=== PATIENT | female | born 1990 | race Caucasian/White ===

== ENCOUNTER 2017-08-30 12:14 | Emergency (ER) | payer OTHER, SELFPAY ==
[2017-08-30 12:16] VITALS: BP 140/76; PULSE 85; RESP 18; TEMP 36.6; O2SAT 100; BMI 34.7
--- NOTE | 2017-08-30 12:31 | ED.VISSUMM ---
- ER Visit Summary Date of Service: 08/30/17 Chief Complaint: Numbness History of Present Illness: The patient is a 27 F who goes to [facility]. She reports that approximately 830 this morning she had the onset of a headache. Is diffuse in location. She describes as an aching pain. Is 5 out of 10 severity. She has had similar headaches previously. Patient reports that approximately 1 hour later she had numbness that began in her right first through third fingers while she was doing her typical job duties. She is right-hand dominant. She reports that she has never had this before. A few minutes later she developed right facial numbness. That has now resolved. It lasted proximally 5 minutes. Following this however she has numbness that is extended over her entire right hand. Patient reports that her father has a history of MS and was diagnosed at approximately her age. Physical Examination: Vitals: Stable. Afebrile. Neurological: Cranial nerves II through XII are intact. 5 out of 5 strength throughout. Normal sensation to light touch throughout. Normal [id number]-dgko-isicur and nrow-jbvo-wlvb bilaterally. Normal gait. She has no paresthesias on exam, specifically in her right hand. General: A&O x 3. NAD. Cardiovascular exam: Regular rate and rhythm, no murmur, rub or gallop. Respiratory exam: Clear to auscultation bilaterally. No wheezes or stridor. Abdominal exam: Soft, nontender, nondistended, normal bowel sounds. No peritoneal signs. Extremity: No clubbing, cyanosis, or edema. 2+ radial pulse bilaterally. Test Results: CBC is normal. Chem-7 is normal. Patency test is negative. CT head is normal. Emergency Department Course and Treatment: Patient had an IV placed. She was given Toradol, Benadryl, and Reglan for her headache. She is resting comfortably. Treatment Plan: Patient will be discharged instructions to follow-up with her primary care physician for further evaluation and treatment. I did discuss the likelihood that she would need an MRI to rule out that this is an initial onset of multiple sclerosis. Return to the emergency department for any worsening symptoms. Disposition: To home in improved and stable condition. Impression: 1. Paresthesias right hand. 2. Family history of multiple sclerosis. This note was generated with [employer] software. It may contain incorrect words, spelling, and punctuation that were not noted in review of the chart prior to signing ED Disposition - Plan for ED Patient: Disposition: Home or Assisted Living Chief Complaint: Numb/Ting Instructions: ED Paraesthesias Referrals: Alexis Craig [NON-STAFF] - As soon as possible
--- NOTE | 2017-08-30 12:32 | CT_ITS ---
STUDY: CT BRAIN WITHOUT CONTRAST REASON FOR EXAM: Female, 27 years old. Facial numbness. Hand numbness. RADIATION DOSAGE (If Supplied By Facility): CTDIvol = ( 44.99 ) mGy, DLP = ( 745.49 ) mGycm TECHNIQUE: Transaxial CT imaging of the brain was performed without administration of intravenous contrast material. Individualized dose optimization techniques were used for this CT. COMPARISON: None. FINDINGS: Normal soft tissue structures. Normal calvarium. Normal size ventricles and extra-axial spaces for the patient's age. Normal white matter tracts of the cerebral hemispheres. Normal basal ganglia and thalami. Normal brainstem. Normal cerebellum. There is no intracranial hemorrhage. There are no findings of an acute ischemic infarction. Normal visualized paranasal sinuses. CT/Brain/Head without Contrast IMPRESSION: Normal unenhanced CT scan of the brain. Electronically Signed: Cirilo Owens MD at 13:39 EST , Service support ,
[2017-08-30] MEDS: DiphenhydrAMINE 50 MG/ML Syringe 25 MG IV (12:51)
[2017-08-30] MEDS: proCHLORPERazine 10 MG/2 ML Vial IV (12:51)
[2017-08-30] MEDS: Ketorolac 30 MG/ML Syringe IV (12:51)
[2017-08-30 13:10] LABS: Absolute Lymphocyte Count 1.86 X10^3/ul (0.83-4.51); Absolute Neutrophil Count 4.5 X10^3/uL (2.0-7.7); Basophil# 0.02 X10^3/uL; Basophil% 0.3 % (0-1); Eosinophil# 0.14 X10^3/uL; Hematocrit 41.7 % (37-47); Hemoglobin 13.5 g/dl (12.0-15.0); Lymphocyte # 1.86 X10^3/ul (4.0); Lymphocyte % 26.8 % (19-41); Mean Corp Hgb Conc 32.4 g/gl (32-36); Mean Corpuscular Hgb 29.4 pg (27.0-32.0); Mean Corpuscular Volume 90.8 fL (81-99); Mean Platelet Vol. 10.2 fl (6.2-12.0); Monocyte# 0.44 X10^3/uL; Monocyte% 6.3 % (0-10); Neutrophil # 4.48 X10^3/uL (2.7-7.7); Neutrophil % 64.6 % (47-70); POSITIVE COUNT NO; POSITIVE DIFFERENTIAL NO; POSITIVE MORPHOLOGY NO; Platelet Count 242 K/mm3 (150-450); RBC Distribution Width CV 13.3 % (11.6-14.6); RBC Distribution Width SD 43.8 fl (35.1-43.9); Red Blood Count 4.59 M/mm3 (4.2-5.4); White Blood Count 6.9 K/mm3 (4.4-11.0)
[2017-08-30 13:22] LABS: Anion Gap 4 (5-15); BUN 8 mg/dL (7-18); BUN/Creat Ratio 12.7 RATIO (10-20); Calcium,Total 8.6 mg/dL (8.5-10.1); Chloride 107 mmol/L (98-107); Creatinine, Serum 0.63 mg/dL (0.55-1.02); EST Glomerular Filtration Rate 119 mL/min (>60); Est Glom Filt Rate - Afr Amer 144 mL/min (>60); Estimated Creatinine Clearance 124.46 ml/min; Glucose 84 mg/dL (74-106); Potassium 3.7 mmol/L (3.5-5.1); Sodium Level 140 mmol/L (136-145)
[2017-08-30 13:40] LABS: Pregnancy, Serum, hCG Quali. NEGATIVE Negative (0-9 Nonpreg)
[2017-08-30 14:16] VITALS: BP 111/52; PULSE 71; RESP 16; O2SAT 100
[2017-08-30 14:18] VITALS: BP 111/52; PULSE 71; RESP 16; O2SAT 100
== END 2017-08-30 14:25 | disposition home or self-care (01) ==
PROVIDERS: Emergency Provider Emergency Medicine
DX: R20.2 Paresthesia of skin (principal); R51 Headache; Z82.69 Family history of other diseases of the musculoskeletal system and connective tissue; F17.200 Nicotine dependence, unspecified, uncomplicated
CPT/HCPCS: 70450; 80048; 84703; 85025; 96374; 96375; 99284; J7030; J7040; A4216

== ENCOUNTER 2018-01-25 12:15 | Emergency (ER) | payer MEDICAID, SELFPAY ==
[2018-01-25 12:16] VITALS: BP 136/68; PULSE 96; RESP 18; TEMP 36.7; O2SAT 98; BMI 36.1
[2018-01-25] MEDS: Metoclopramide 10 MG/2 ML Vial IV (13:02)
[2018-01-25] MEDS: DiphenhydrAMINE 50 MG/ML Syringe 25 MG IV (13:02)
[2018-01-25] MEDS: 0.9% Normal Saline 1,000 ML 999 ML IV (13:02)
--- NOTE | 2018-01-25 14:59 | ED.VISSUMM ---
- ER Visit Summary Date of Service: 01/25/18 Chief Complaint: Headache History of Present Illness: The patient is a 27 F who sees [facility] and Dr. Henrietta Montes. She reports that she has a headache that is posterior eyes that began approximately 1115 this morning is gradually gotten worse. Is 3 out of 10 severity. States worsened by nothing relieved by nothing. She has had nausea without vomiting. She reports that these headache was preceded by seeing bright colored spots in her eyes bilaterally. She denies any blurred or double vision. She has no photophobia. Patient is at 14 weeks 5 days . She denies any vaginal bleeding. No abdominal pain. Physical Examination: Vitals: Stable. Afebrile. General: Well-nourished and well-developed. Head: Normocephalic atraumatic. Neck: Supple, no lymphadenopathy. No JVD. Nontender. Cardiovascular: Regular rate and rhythm. No murmurs. Respiratory: No respiratory distress. Clear to auscultation bilaterally. Abdominal: Soft, nontender, nondistended, normal bowel sounds. No guarding, rebound, or peritoneal signs. Back: Nontender. Extremities: Nontender, no edema. Skin: Normal color, no rash. Neurologic: Alert and oriented ?3. Cranial nerves II through XII are intact. Normal strength and sensation. Psych: Normal affect. Emergency Department Course and Treatment: The patient has scotoma that are quite classic for a migraine headache. She was given a dose of Reglan and Benadryl IV. These resolved as did her headache. She had heart tones of 150 while here. Treatment Plan: Patient will be discharged instructions to follow-up with her primary care physician 1-2 days if not improving. Return to the emergency department for any worsening symptoms. Disposition: To home in improved and stable condition. Impression: 1. Migraine headache. 2. Second trimester . This note was generated with [employer] dictation software. It may contain incorrect words, spelling, and punctuation that were not noted in review of the chart prior to signing ED Disposition - Plan for ED Patient: Disposition: Home or Assisted Living Chief Complaint: Headache Instructions: ED Headache Migraine Prescriptions: Metoclopramide [Reglan] 10 mg PO 4X/DAY PRN #20 tablet PRN Reason: Headache Referrals: Doctor,Your [STAFF PHYSICIAN] - 1-2 Days if not improving
[2018-01-25 15:06] VITALS: BP 112/57; PULSE 81; RESP 16; O2SAT 97
== END 2018-01-25 15:07 | disposition home or self-care (01) ==
PROVIDERS: Emergency Provider Emergency Medicine
DX: O26.892 Other specified pregnancy related conditions, second trimester (principal); G43.909 Migraine, unspecified, not intractable, without status migrainosus; Z3A.14 14 weeks gestation of pregnancy
CPT/HCPCS: 96361; 96374; 96375; 99284; J7030; A4216

== ENCOUNTER 2018-07-07 21:42 | Outpatient (CLI) | payer OTHER, MEDICAID, SELFPAY ==
[2018-07-07 22:15] VITALS: BMI 36.4
[2018-07-07 22:48] LABS: ROM Internal Control Test YES-OK TO RESULT pt. (Internal QC); ROM Patient Test Negative (Negative)
--- NOTE | 2018-07-10 14:20 | OB.TRI.NOTE ---
History of Present Illness Was patient seen by the physician?: No Reason For Visit: R/O LABOR Date of Service: 07/07/18 Final OPHELIA Source: US <20 weeks Allergies amoxicillin [From Augmentin] Allergy (Verified 07/07/18 22:16) Rash cefaclor [From Ceclor] Allergy (Verified 07/07/18 22:16) Rash clavulanic acid [From Augmentin] Allergy (Verified 07/07/18 22:16) Rash clindamycin [From Cleocin] Allergy (Verified 07/07/18 22:16) Rash Penicillins Allergy (Verified 07/07/18 22:16) Rash sulfamethoxazole [From Septra] Allergy (Verified 07/07/18 22:16) Rash trimethoprim [From Septra] Allergy (Verified 07/07/18 22:16) Rash - Pertinent Past Medical History Medical History: Past Medical History (Last Updated 10/09/17 @ 12:03 by Marilee Bloom) Back pain Irregular periods Kidney stones Seasonal allergic rhinitis Laboratory Studies: Laboratory Tests 07/07/18 Range/Units 22:15 Vag Amniotic Fld Detect Negative (Negative) NST - FHR Rate Baby A Baseline: 130 Variability:: Moderate Accelerations:: 15 x 15 Decelerations:: None NST Reactive:: Yes FHR Category:: Category I Uterine Activity:: irreg ctxs Impression/Plan 27-year-old female multigravida at 37-3/7 weeks gestation with false labor. Patient is not in active labor. Discharge home and follow-up in the office as scheduled or return as needed.
== END 2018-07-08 00:20 | disposition home or self-care (01) ==
LOC: WPOUT 22:13 → WP 22:14
PROVIDERS: Referring Provider Obstetrics & Gynecology; Visit Provider Obstetrics & Gynecology
DX: O47.1 False labor at or after 37 completed weeks of gestation (principal); Z3A.37 37 weeks gestation of pregnancy
CPT/HCPCS: 59025; 59050; 84112; 99218; G0378

== ENCOUNTER 2018-07-15 07:00 | Inpatient (IN) | payer OTHER, MEDICAID, SELFPAY ==
[2018-07-15 07:25] VITALS: BMI 35.9
[2018-07-15] MEDS: Lactated Ringers 1,000 ML 50 ML IV ×2 (07:32→15:41)
[2018-07-15 07:45] LABS: Hematocrit 35.4 % (37-47); Hemoglobin 11.5 g/dl (12.0-15.0); Mean Corp Hgb Conc 32.5 g/gl (32-36); Mean Corpuscular Hgb 29.8 pg (27.0-32.0); Mean Corpuscular Volume 91.7 fL (81-99); Mean Platelet Vol. 10.5 fl (6.2-12.0); Platelet Count 242 K/mm3 (150-450); RBC Distribution Width CV 12.8 % (11.6-14.6); RBC Distribution Width SD 42.4 fl (35.1-43.9); Red Blood Count 3.86 M/mm3 (4.2-5.4); White Blood Count 8.5 K/mm3 (4.4-11.0)
[2018-07-15 07:46] LABS: Scan Indicated on CBC? Y/N NO
[2018-07-15] MEDS: Oxytocin 30 units/NS 500 ml 30 UNITS/500 ML IV.SOLN IV (08:00)
[2018-07-15] MEDS: Vancomycin IV 1,000 MG/200 ML BAG 200 MG IV (08:48)
[2018-07-15] MEDS: Nalbuphine 10 MG/ML Ampul IV (13:27)
--- NOTE | 2018-07-15 13:27 | PCM.HP.OB ---
History Date of Admission: 07/15/18 Final OPHELIA: 07/22/18 Final OPHELIA Source: US <20 weeks Gestational age: 39 Weeks and 0 Days History of this : This is a 27 year-old, 2 para 1 female at 39-0/7 weeks gestation cents for elective induction of labor. She has a history of one previous vaginal delivery and she had been induced at 38-3/7 weeks gestation with that for gestational hypertension. During this , she has been monitoring her blood pressure at home and she has remained normotensive. She denies any vaginal bleeding or leaking of fluid. She has had no regular contractions. She denies any headache or epigastric pain or visual rinses. Medical History: Medical History (Last Updated 10/09/17 @ 12:03 by Marilee Bloom) Back pain M54.9 Irregular periods N92.6 Kidney stones N20.0 Seasonal allergic rhinitis J30.2 Allergies amoxicillin [From Augmentin] Allergy (Verified 07/15/18 07:27) Rash cefaclor [From Ceclor] Allergy (Verified 07/15/18 07:27) Rash clavulanic acid [From Augmentin] Allergy (Verified 07/15/18 07:27) Rash clindamycin [From Cleocin] Allergy (Verified 07/15/18 07:27) Rash Penicillins Allergy (Verified 07/15/18 07:27) Rash sulfamethoxazole [From Septra] Allergy (Verified 07/15/18 07:27) Rash trimethoprim [From Septra] Allergy (Verified 07/15/18 07:27) Rash Home Medications: Home Medications Pnv No.95/Ferrous Fum/Folic AC [ Multivitamin Tablet] 1 each PO DAILY 01/25/18 Aspirin [Aspirin, Baby] 81 mg PO DAILY@0800 07/15/18 Smoking Status: Heavy Smoker (>10/day) Alcohol: None Number of Fetus(es): 1 Heart Tracing: Baseline, moderate variability, spontaneous accelerations and no recurrent decelerations TOCO Analysis: Irregular contractions History Past Pregnancies: Past Pregnancies Delivery Date Name GA/Weeks Outcome Route Weight Gender Labor Length Anesthesia Delivery Location Provider FOB Review of Systems Constitutional: Denies: Anorexia, Chills, Fever Eyes: Denies: Blurred vision Cardiovascular: Denies: Chest Pain Respiratory: Denies: Cough Gastrointestinal: Denies: Abdominal Pain Skin: Denies: Rash Physical Exam General: Alert, Cooperative, No apparent distress Cardiovascular: Regular rate Lungs: Normal air movement Abdomen: Soft, Non-Distended, Gravid, Appropriate for Gestational Age Extremities:: Other - trace edema WHOLESALE REPRESENTATIVE: Normal external genitalia Estimated gestational size: Appropriate for gestational size Presentation: Cephalic Cervix Dilation (cm): 3 - AROM w/ return of moderate clear fluid Station: -2 Effacement (%): 70 Assessment/Plan All Active Problems (Last Updated 10/09/17 @ 12:03 by Marilee Bloom) Physical exam, pre-employment (Acute) This is a 27 year-old, 2 para 1 at 39-0/7 weeks for elective induction of labor. EDC is 07/22/2018 by last menstrual period confirmed by first trimester ultrasound. May weight is less than 4000 g clinically, pelvis clinically adequate to expect vaginal delivery. Will initiate Pitocin and artificial rupture membranes induction. Patient is on vancomycin for group B strep prophylaxis..
[2018-07-15] MEDS: Acetaminophen 325 MG Tablet PO (15:38)
[2018-07-15] MEDS: Oxytocin 30 units/NS 500 ml 30 UNITS/500 ML IV.SOLN 334 UNITS IV (19:01)
[2018-07-15] MEDS: Oxytocin 30 units/NS 500 ml 30 UNITS/500 ML IV.SOLN 167 UNITS IV (19:16)
[2018-07-15] MEDS: Methylergonovine 0.2 MG/ML Ampul IM (19:30)
--- NOTE | 2018-07-15 19:41 | PCM.OB.VAG ---
Vaginal Delivery Maternal Presentation: Elective Induction Amniotic Membrane Rupture Type: Artificial Amniotic Fluid Description: Clear Final OPHELIA: 07/22/18 Gestational age: 39 Weeks and 0 Days Date of Procedure: 07/15/18 Pre-Operative Diagnosis: Elective induction Post-Operative Diagnosis: Same Surgery/ Procedure Performed: Spontaneous Vaginal Delivery Type of Anesthesia: Epidural Description of Procedure: Patient prepped & draped when c/c/+2. Patient pushed to deliver head. Shoulders & body easily followed. placed on maternal abdomen where 3VC clamped & cut in delayed fashion. Placenta delivered with gentle traction. Good uterine tone obtained. 1x2cm sebaceous cyst excised with scalpel. Figure of eight suture with 3-0 vicryl placed for hemostasis. Presentation: CESAR Placental Delivery Description: Expressed Placenta Disposition: [facility] Cord Vessel Description: 3 Vessels Estimated Blood Loss: 400ml Infant A gender: Female (1 minute): 8 (5 minute): 9 Episiotomy Description: None Laceration: Vaginal Extension/lac - repaired with 3-0 vicryl Medications given after delivery: IV Pitocin Complications: None
[2018-07-15] MEDS: 0.9% Saline Lock 10 ML Syringe IV (20:52)
[2018-07-15] MEDS: Acetaminophen 500 MG Tablet 1000 MG PO (23:48)
[2018-07-16] VITALS: BP 113/73; PULSE 80; RESP 16; TEMP 36.9
[2018-07-16 04:38] VITALS: BP 111/67; PULSE 69; RESP 16; TEMP 36.3
[2018-07-16] MEDS: Ibuprofen 600 MG Tablet PO ×3 (06:48→22:09)
[2018-07-16 08:00] VITALS: BP 135/63; PULSE 87; RESP 17; TEMP 36.8; O2SAT 99
--- NOTE | 2018-07-16 08:30 | PCM.PN.OB ---
Subjective: pain well controlled, average lochia, no N/V - Physical Exam General: Alert, Cooperative, No apparent distress Vital Signs Temp Pulse Resp BP 97.3 F L 69 16 111/67 07/16/18 04:38 07/16/18 04:38 07/16/18 04:38 07/16/18 04:38 Weight: 101.06 kg Body Mass Index (BMI) 35.9 Intake and Output for Last 24 Hours 07/14/18 07/15/18 07/16/18 23:59 23:59 23:59 Intake Total 3681 / 3681 Output Total 700 / 700 800 / 800 Balance 2981 / 2981 -800 / -800 Laboratory Tests Past 24 Hrs 07/15/18 07:32 Blood Type A POSITIVE Antibody Screen NEGATIVE Medical Necessity - Tobacco Use Smoking Status: Heavy Smoker (>10/day) Assessment/Plan All Active Problems (Last Updated 10/09/17 @ 12:03 by Marilee Bloom) Physical exam, pre-employment (Acute) PPD#1 routine care might like to be d/jennyfer today.
--- NOTE | 2018-07-16 08:32 | DCINST_ITS ---
Discharge Diet: No Restrictions Discharge Activity: Return to Normal Activity, May not drive while taking narcotic pain medications., May Shower May resume sexual activity in: 4-6 weeks Additional Activity Instructions:: Nothing in the vagina for 4-6 weeks. You may return to work/school in 6 weeks. Call your doctor if your incision/area has: Continuous Slow Oozing, Sudden Increased Bleeding, Increased Pain/ Swelling, Increased Redness, Foul Smelling Discharge Additional Instructions: If you experience any of the following, contact your healthcare provider. * Bleeding that soaks a pad every hour for 2 hours * Fever 100.4 or higher * Unrelieved incision or abdominal pain * Swelling, redness, discharge or bleeding from your incision or episiotomy site * Your incision begins to separate * Problems urinating (including inability to urinate or burning while urinating). * Visual changes * Severe headache * Flu-like symptoms * Pain or redness in one of both of your breasts * Pain, warmth, tenderness or swelling in your legs, especially the calf area * Frequent nausea and vomiting * Symptoms of depression or anxiety If you experience any of the following, call 911 or go to the nearest Emergency Room. * Chest pain * Problems breathing * Seizure activity * Partial or complete paralysis of a body part, slurred speech, weakness or drooping of the face, or a sudden inability to walk or hold your balance Allergies/Adverse Reactions: Allergies amoxicillin [From Augmentin] Allergy (Verified 07/15/18 07:27) Rash cefaclor [From Ceclor] Allergy (Verified 07/15/18 07:27) Rash clavulanic acid [From Augmentin] Allergy (Verified 07/15/18 07:27) Rash clindamycin [From Cleocin] Allergy (Verified 07/15/18 07:27) Rash Penicillins Allergy (Verified 07/15/18 07:27) Rash sulfamethoxazole [From Septra] Allergy (Verified 07/15/18 07:27) Rash trimethoprim [From Septra] Allergy (Verified 07/15/18 07:27) Rash Medications to take at Discharge Pnv No.95/Ferrous Fum/Folic AC [ Multivitamin Tablet] 1 each PO DAILY 01/25/18 Ibuprofen [Motrin] 800 mg PO TID PRN PRN #60 tablet 07/16/18 The following prescriptions were given: Ibuprofen [Motrin] 800 mg PO TID PRN PRN #60 tablet PRN Reason: Pain Please Follow Up With: Henrietta Montes MD - [phone] When: Call to make an appointment with your doctor in 6 weeks. If you had elevated Blood Pressure or 4th degree laceration you will need to be seen in 2 weeks. Primary Care Physician: Care Physician,No Primary [Primary Care Provider] - Test Results: Test results from this visit will be discussed in further detail at your follow- up appointment, if applicable.
[2018-07-16] MEDS: Acetaminophen 500 MG Tablet 1000 MG PO ×2 (11:04→20:20)
[2018-07-16 13:00] VITALS: BP 128/73; PULSE 89; RESP 17; TEMP 36.6; O2SAT 98
[2018-07-16 16:00] VITALS: BP 121/65; PULSE 89; RESP 17; TEMP 36.9; O2SAT 99
[2018-07-16 20:21] VITALS: BP 123/73; PULSE 78; RESP 18; TEMP 36.6
[2018-07-17 00:29] VITALS: BP 130/74; PULSE 89; RESP 16; TEMP 36.4
[2018-07-17 02:00] VITALS: BP 123/70; PULSE 86; RESP 18; TEMP 36.2
[2018-07-17] MEDS: Ibuprofen 600 MG Tablet PO (05:37)
[2018-07-17 08:04] VITALS: BP 129/60; PULSE 90; RESP 16; TEMP 36.8; O2SAT 98
--- NOTE | 2018-07-17 08:05 | PCM.PN.OB ---
Subjective: Patient resting in bed, reports no issues at this time. Reports that baby is feeding well, no latch or issues reported. Patient denies PATIÑO, scotoma, or dizziness. Desires discharge to home today. Objective: VSS, Afebrile Nipples intact, no cracks or blisters noted Abdomen NT x 4 quadrants, FF midline 2FB below umbilicus +2/4 reflexes in LE, no edema noted, negative calf tenderness scant rubra lochia, perineum well-approximated - Physical Exam General: Alert, Oriented x3, Cooperative HEENT: Atraumatic, Normocephalic Neck: Supple Lungs: Normal air movement Cardiovascular: Regular rate, No murmurs Abdomen: Soft, Non Tender, Non-Distended, Passing Flatus Extremities: No edema, Capillary Refill Less than 3 Seconds Skin: No rashes, No breakdown Musculoskeletal: No Tenderness to Palpation of Joints or Extremities Neurological: Cranial nerves II-XII grossly intact Psych/Mental Status: Normal Affect, Appropriate Vital Signs Temp Pulse Resp BP Pulse Ox 97.2 F L 86 18 123/70 H 99 07/17/18 02:00 07/17/18 02:00 07/17/18 02:00 07/17/18 02:00 07/16/18 16:00 Oxygen Delivery Method Room Air Weight: 222 lb 12.8 oz Body Mass Index (BMI) 35.9 Intake and Output for Last 24 Hours 07/15/18 07/16/18 07/17/18 23:59 23:59 23:59 Intake Total 3681 / 3681 Output Total 700 / 700 800 / 800 Balance 2981 / 2981 -800 / -800 Medical Necessity - Tobacco Use Smoking Status: Heavy Smoker (>10/day) Assessment/Plan All Active Problems (Last Updated 10/09/17 @ 12:03 by Marilee Bloom) Physical exam, pre-employment (Acute) 27 y/o s/p , PPD #2, Normal PP Course P: 1) Anticipate discharge to home today 2) Anticipatory PP discharge teaching done 3) RTC at 2 weeks and 6 weeks for follow-up visits in [facility] Patti BECKETT
[2018-07-17 09:10] VITALS: BP 129/60; PULSE 90; RESP 16; TEMP 36.8; O2SAT 98
[2018-07-17] MEDS: Acetaminophen 500 MG Tablet 1000 MG PO (09:17)
--- OUTSIDE RECORDS SUMMARY | 2018-09-18 19:42 | XMS RPT_ITS ---
:1990 Author Organization OH[facility] Care Team Providers Name Role Phone MAGDIEL REYESECHAILEE Bustillos Attending Unavailable ERIC, NASH L Referring Unavailable ERIC, NASH L Attending Unavailable ERIC, NASH L Referring Unavailable JOSE MIGUEL WILLIS Attending Unavailable ERIC, NASH L Referring Unavailable ERIC, NASH L Referring Unavailable ERIC, NASH L Attending Unavailable ERIC, NASH L Referring Unavailable JOSE MIGUEL WILLIS Attending Unavailable ERIC, NASH L Referring Unavailable ERIC, NASH L Attending Unavailable ERIC, NASH L Attending Unavailable ERIC, NASH L Referring Unavailable ERIC, NASH L Attending Unavailable ERIC, NASH L Referring Unavailable ERIC, NASH L Referring Unavailable MIGUEL CAR Attending Unavailable ALBA, JOSE MIGUEL Mac Attending Unavailable ERIC, NASH L Attending Unavailable ERIC, NASH L Attending Unavailable MIGUEL CAR Attending Unavailable WANDA ZAMORA (CNM) Attending Unavailable ERIC, NASH L Attending Unavailable ERIC, NASH L Attending Unavailable Brendan Farias Attending Unavailable Rubi Fariasantinos Admitting Unavailable Tourlas, Brendan Primary Care Unavailable Wiswell, Jovanna Attending Unavailable Wiswell, Jovanna Referring Unavailable Primay Care Physicia, No Primary Care Unavailable Primay Care Physicia, No Primary Care Unavailable Della Shah Admitting Unavailable Della Shah Attending Unavailable Della Shah Referring Unavailable Dewayne English Attending Unavailable Primay Care Physicia, No Primary Care Unavailable Chaim Pierre Attending Unavailable Primay Care Physicia, No Referring Unavailable Primay Care Physicia, No Primary Care Unavailable Primay Care Physicia, No Primary Care Unavailable Dewayne English Attending Unavailable PROBLEMS PROBLEMS DATE TYPE CONDITION / CODE ATTENDING STATUS SOURCE 05/04/2018 Active 28 weeks gestation NA Active [facility] Z3A.28(ICD-10) Repository 05/04/2018 Active Encounter for NA Active [facility] supervision of [facility] other normal Repository , third trimester / Z34.83(ICD-10) 12/11/2017 Active Personal history of NA Active [facility] other complications [facility] [place] of , Repository childbirth and the puerperium / Z87.59(ICD-10) 01/08/2018 Active 12 weeks gestation NA Active [facility] of / [facility] [place] Z3A.12(ICD-10) Repository 01/08/2018 Active Encounter for NA Active [facility] screening [facility] [place] for nuchal Repository translucency / Z36.82(ICD-10) 01/08/2018 Active Encounter for NA Active [facility] [place] screening, Repository unspecified / Z36.9(ICD-10) 12/11/2017 Active Encounter for NA Active [facility] supervision of [facility] other normal Repository , first trimester / Z34.81(ICD-10) 11/26/2017 Active Unknown / NA Active [facility] UNK(Unknown) [facility] [place] Repository 10/09/2017 Unknown Z02.1 - Encounter Chaim Pierre Active [place] for pre-employment Community examination / Hospital Z02.1(ICD-10) Repository PROCEDURES PROCEDURES No Procedure Records FoundRESULTS RESULTS PROGRESS Observed: 07/22/2018 Status: COMPLETED Source: [place] 9:46 AM [facility] REPOSITORY HNO ID: [id number] Author: Magy Osborne LPN Service: (none) Author Type: (none) Type: Progress Notes Filed: 07/22/2018 9:58 AM Note Text: Pt delivered via at [facility] on 07/15/[address] Shah. See OB Outcome Note. Spoke with pt post and she denies any c/o or issues. 6 wk pp appt scheduled. Magy Osborne LPN DISCHARGE INSTRUCTION Observed: 07/16/2018 Status: F Source: [place] 8:32 AM [facility] REPOSITORY [facility] Medical Records Department [address] [place] [address] Instructions for Home/Discharge Instructions 07/16/18 0832 MR#: [id number] Acct: [id number] Name: MELIDA PARRISH Rep #: [id number] : 1990 27 From: Nash Reyes MD PCP: Care Physician, No Primary Status: ADM IN Discharge Diet: No Restrictions Discharge Activity: Return to Normal Activity, May not drive while taking narcotic pain medications., May Shower May resume sexual activity in: 4-6 weeks Additional Activity Instructions:: Nothing in the vagina for 4-6 weeks. You may return to work/school in 6 weeks. Call your doctor if your incision/area has: Continuous Slow Oozing, Sudden Increased Bleeding, Increased Pain/ Swelling, Increased Redness, Foul Smelling Discharge Additional Instructions: If you experience any of the following, contact your healthcare provider. * Bleeding that soaks a pad every hour for 2 hours * Fever 100.4 or higher * Unrelieved incision or abdominal pain * Swelling, redness, discharge or bleeding from your incision or episiotomy site * Your incision begins to separate * Problems urinating (including inability to urinate or burning while urinating). * Visual changes * Severe headache * Flu-like symptoms * Pain or redness in one of both of your breasts * Pain, warmth, tenderness or swelling in your legs, especially the calf area * Frequent nausea and vomiting * Symptoms of depression or anxiety If you experience any of the following, call 911 or go to the nearest Emergency Room. * Chest pain * Problems breathing * Seizure activity * Partial or complete paralysis of a body part, slurred speech, weakness or drooping of the face, or a sudden inability to walk or hold your balance Allergies/Adverse Reactions: Allergies amoxicillin [From Augmentin] Allergy (Verified 07/15/18 07:27) Rash cefaclor [From Ceclor] Allergy (Verified 07/15/18 07:27) Rash clavulanic acid [From Augmentin] Allergy (Verified 07/15/18 07:27) Rash clindamycin [From Cleocin] Allergy (Verified 07/15/18 07:27) Rash Penicillins Allergy (Verified 07/15/18 07:27) Rash sulfamethoxazole [From Septra] Allergy (Verified 07/15/18 07:27) Rash trimethoprim [From Septra] Allergy (Verified 07/15/18 07:27) Rash Medications to take at Discharge Pnv No.95/Ferrous Fum/Folic AC [ Multivitamin Tablet] 1 each PO DAILY 01/25/18 Ibuprofen [Motrin] 800 mg PO TID PRN PRN #60 tablet 07/16/18 The following prescriptions were given: Ibuprofen [Motrin] 800 mg PO TID PRN PRN #60 tablet PRN Reason: Pain Please Follow Up With: Nash Reyes MD - [phone] When: Call to make an appointment with your doctor in 6 weeks. If you had elevated Blood Pressure or 4th degree laceration you will need to be seen in 2 weeks. Primary Care Physician: Care Physician,No Primary [Primary Care Provider] - Test Results: Test results from this visit will be discussed in further detail at your follow-up appointment, if applicable. 07/16/18 0832 <Electronically signed by Nash Reyes MD> Date Nash Reyes MD CC: No Primary Care Physician Signed OPERATIVE REPORT Observed: 07/15/2018 Status: F Source: [place] 7:48 PM [facility] REPOSITORY [facility] Medical Records Department [address] [place] [address] Operative Report 07/15/181940 MR#: [id number] Acct: [id number] Name: MELIDA PARRISH Rep #: [id number] : 1990 27 From: Della Shah PCP: Care Physician, No Primary Status: ADM IN Location: [place] [address] Vaginal Delivery Maternal Presentation: Elective Induction Amniotic Membrane Rupture Type: Artificial Amniotic Fluid Description: Clear Final OPHELIA: 07/22/18 Gestational age: 39 Weeks and 0 Days Date of Procedure: 07/15/18 Pre-Operative Diagnosis: Elective induction Post-Operative Diagnosis: Same Surgery/ Procedure Performed: Spontaneous Vaginal Delivery Type of Anesthesia: Epidural Description of Procedure: Patient prepped AND draped when c/c/+2. Patient pushed to deliver head. Shoulders AND body easily followed. Infant placed on maternal abdomen where 3VC clamped AND cut in delayed fashion. Placenta delivered with gentle traction. Good uterine tone obtained. 1x2cm sebaceous cyst excised with scalpel. Figure of eight suture with 3-0 vicryl placed for hemostasis. Presentation: CESAR Placental Delivery Description: Expressed Placenta Disposition: [facility] Cord Vessel Description: 3 Vessels Estimated Blood Loss: 400ml Infant A gender: Female (1 minute): 8 (5 minute): 9 Episiotomy Description: None Laceration: Vaginal Extension/lac - repaired with 3-0 vicryl Medications given after delivery: IV Pitocin Complications: None 07/15/181947 <Electronically signed by Della Shah > Date Della Shah CC: No Primary Care Physician; Della Pablo Signed HISTORY AND PHYSICAL Observed: 07/15/2018 Status: F Source: KO EXAM 1:34 PM [facility] REPOSITORY [facility] Medical Records Department [address] [place] [address] History and Physical 07/15/18 1327 MR#: [id number] Acct: [id number] Name: MELIDA PARRISH Rep #: [id number] : 1990 27 From: Nash Reyes MD PCP: Care Physician, No Primary Status: ADM IN Location: [id number] History Date of Admission: 07/15/18 Final OPHELIA: 07/22/18 Final OPHELIA Source: US <20 weeks Gestational age: 39 Weeks and 0 Days History of this : This is a 27 year-old, 2 para 1 female at 39-0/7 weeks gestation cents for elective induction of labor. She has a history of one previous vaginal delivery and she had been induced at 38-3/7 weeks gestation with that for gestational hypertension. During this , she has been monitoring her blood pressure at home and she has remained normotensive. She denies any vaginal bleeding or leaking of fluid. She has had no regular contractions. She denies any headache or epigastric pain or visual rinses. Medical History: Medical History (Last Updated 10/09/17 @ 12:03 by Marilee Bloom) Back pain M54.9 Irregular periods N92.6 Kidney stones N20.0 Seasonal allergic rhinitis J30.2 Allergies amoxicillin [From Augmentin] Allergy (Verified 07/15/18 07:27) Rash cefaclor [From Ceclor] Allergy (Verified 07/15/18 07:27) Rash clavulanic acid [From Augmentin] Allergy (Verified 07/15/18 07:27) Rash clindamycin [From Cleocin] Allergy (Verified 07/15/18 07:27) Rash Penicillins Allergy (Verified 07/15/18 07:27) Rash sulfamethoxazole [From Septra] Allergy (Verified 07/15/18 07:27) Rash trimethoprim [From Septra] Allergy (Verified 07/15/18 07:27) Rash Home Medications: Home Medications Pnv No.95/Ferrous Fum/Folic AC [ Multivitamin Tablet] 1 each PO DAILY 01/25/18 Aspirin [Aspirin, Baby] 81 mg PO DAILY@0800 07/15/18 Smoking Status: Heavy Smoker (>10/day) Alcohol: None Number of Fetus(es): 1 Heart Tracing: Baseline, moderate variability, spontaneous accelerations and no recurrent decelerations TOCO Analysis: Irregular contractions History Past Pregnancies: Past Pregnancies Delivery Name GA/Weeks Outcome Route WeiInfant GeLabor LenAnesthesiDelivery Provider FOB Date ght nder h a Location Review of Systems Constitutional: Denies: Anorexia, Chills, Fever Eyes: Denies: Blurred vision Cardiovascular: Denies: Chest Pain Respiratory: Denies: Cough Gastrointestinal: Denies: Abdominal Pain Skin: Denies: Rash Physical Exam General: Alert, Cooperative, No apparent distress Cardiovascular: Regular rate Lungs: Normal air movement Abdomen: Soft, Non-Distended, Gravid, Appropriate for Gestational Age Extremities:: Other - trace edema [employer]GER: Normal external genitalia Estimated gestational size: Appropriate for gestational size Presentation: Cephalic Cervix Dilation (cm): 3 - AROM w/ return of moderate clear fluid Station: -2 Effacement (%): 70 Assessment/Plan All Active Problems (Last Updated 10/09/17 @ 12:03 by Marilee Bloom) Physical exam, pre-employment (Acute) This is a 27 year-old, 2 para 1 at 39-0/7 weeks for elective induction of labor. EDC is 07/22/2018 by last menstrual period confirmed by first trimester ultrasound. May weight is less than 4000 g clinically, pelvis clinically adequate to expect vaginal delivery. Will initiate Pitocin and artificial rupture membranes induction. Patient is on vancomycin for group B strep prophylaxis.. 07/15/18 8334 <Electronically signed by Nash Reyes MD> Date Nash Reyes MD Cosigner Signature: Date (if applicable) CC: No Primary Care Physician; Nash Reyes MD Signed CBC-COMPLETE BLOOD CNT Collected: 07/15/2018 Status: F Source: KO NO DIFF 7:32 AM [facility] REPOSITORY TYPE CODE TESTS RESULT OUT OF RANGE REFERENCE UNITS LAB L100.1000 4.4-11.0 K/mm3 Normal WBC 8.5 LAB L100.1200 4.2-5.4 M/mm3 Low RBC 3.86 LAB L100.1300 12.0-15.0 g/dl Low HGB 11.5 LAB L100.1400 37-47 % Low HCT 35.4 LAB L100.1500 81-99 fL Normal MCV 91.7 LAB L100.1600 27.0-32.0 pg Normal MCH 29.8 LAB L100.1700 32-36 g/gl Normal MCHC 32.5 LAB L100.1810 11.6-14.6 % Normal RDW CV 12.8 LAB L100.1820 35.1-43.9 fl Normal RDW SD 42.4 LAB L100.1900 150-450 K/mm3 Normal PLT 242 LAB L100.2000 6.2-12.0 fl Normal MPV 10.5 Performed By: #### L100.0500 #### [facility] [address] [place], [place], [address] TYPE AND SCREEN Collected: 07/15/2018 Status: F Source: KO 7:32 AM [facility] REPOSITORY Order Comment: Reason for Type AND Screen/Red Cells: ROUTINE TYPE CODE TESTS RESULT OUT OF RANGE REFERENCE UNITS LAB B10.0800 A Normal BLOOD TYPE GEL POSITIVE LAB B100.4000 Normal Antibody NEGATIVE Screen Performed By: #### B101.7450 #### [facility] [address] [place], [place], [address] (ROM) RUPTURE OF Collected: 07/07/2018 Status: F Source: [place] 10:15 PM [facility] REPOSITORY TYPE CODE TESTS RESULT OUT OF RANGE REFERENCE UNITS LAB L205.1310 Negative Normal ROM Negative Result Comment: Amniotic fluid not present indicates No Rupture of Membranes at time of specimen collection. Performed By: #### L205.1000 #### [facility] [address] [place], [place], [address] PROGRESS Observed: 07/06/2018 Status: COMPLETED Source: [place] 2:59 PM [facility] REPOSITORY HNO ID: [id number] Author: Wanda Zamora Service: (none) Author Type: Lumber Tailer Type: Progress Notes Filed: 07/06/2018 3:01 PM Note Text: NST SUMMARY PROVIDER ASSESSMENT AND INTERPRETATION Melida Parrish is a 27 year old female, , who is at 37w5d with an OPHELIA of 07/22/2018, by Last Menstrual Period dating method. Indications for NST: Decreased Movement Baseline: 150 Variability: Moderate Accelerations: Present 15 X 15 Decelerations: None Contractions: TOCO: None Interpretation: Reactive SIGNATURE: Wanda Zamora APRN.CNM GROUP B STREP PCR Collected: 06/23/2018 Status: F Source: [place] 11:00 AM [facility] REPOSITORY TYPE CODE TESTS RESULT OUT OF RANGE REFERENCE UNITS LAB GBPCRT Positive for Abnormal Group B Alert GROUP B Streptococcus by STREP PCR PCR. If susceptibility testing is needed and was not requested with initial test order, call lab ([phone]) within 5 days to initiate workup. Performed By: #### GBPCR #### [facility] [email or web address] [address] [id number] Observed: 06/23/2018 Status: F Source: [place] RFLX GBS CULT 11:00 AM [facility] SUSCEP REPOSITORY (LAB USE ONLY) Culture Result - Streptococcus agalactiae (Group B streptococcus) ORGANISM: Streptococcus agalactiae (Group B streptococcus) METHOD: Minimum inhibitory concentration (VIZION) Antibiotic Interp MARIOLA Status Penicillin G SUSCEPTIBLE 0.06 F Vancomycin SUSCEPTIBLE <=0.5 F Clindamycin RESISTANT >1 F Performed By: #### GBSREF #### [facility] [email or web address] [address] [place], [place] [address] PROGRESS Observed: 06/07/2018 Status: COMPLETED Source: [place] 3:17 PM [facility] REPOSITORY HNO ID: [id number] Author: Jose Miguel Willis Service: (none) Author Type: Physician Type: Progress Notes Filed: 06/07/2018 3:18 PM Note Text: A bullock intrauterine The size is AGA Estimated Date of Delivery: 07/22/18 EGA = 33w4d The anatomy appears normal in the areas visualized. The amniotic fluid volume is normal. There is no evidence of effusions and/ or hydrops. The placenta is fundal. RECOMMENDATIONS: - Self-assessment of kick counts - Follow up ultrasound as clinically indicated CBC AND DIFFERENTIAL Collected: 05/04/2018 Status: F Source: [place] 3:42 PM [facility] [place] REPOSITORY TYPE CODE TESTS RESULT OUT OF REFERENCE UNITS RANGE LAB WBC 3.70-11.00 k/uL WBC 9.79 LAB RBC 3.90-5.20 m/uL Low RBC 3.48 LAB HGB 11.5-15.5 g/dL Low Hemoglobin 11.0 LAB HCT 36.0-46.0 % Low Hematocrit 33.6 LAB MCV 80.0-100.0 fL MCV 96.6 LAB MCH 26.0-34.0 pG MCH 31.6 LAB MCHC 30.5-36.0 g/dL MCHC 32.7 LAB RDWCV 11.5-15.0 % RDW-CV 13.1 LAB PLTCT 150-400 k/uL Platelet Count 240 LAB MPV 9.0-12.7 fL MPV 11.5 LAB ANEUT % Neut% 74.6 LAB AANEUT 1.45-7.50 k/uL Abs Neut 7.30 LAB ALYMP % Lymph% 16.2 LAB AALYMP 1.00-4.00 k/uL Abs Lymph 1.59 LAB AMONO % [place]% 7.6 LAB AAMONO <0.87 k/uL Abs [place] 0.74 LAB AEOS % Eosin% 1.4 LAB AAEOS <0.46 k/uL Abs Eosin 0.14 LAB ABASO % Baso% 0.2 LAB AABASO <0.11 k/uL Abs Baso <0.03 LAB AUNRBC 0 /100 WBC NRBCs 0.0 LAB ABNRBC <0.01 k/uL Absolute nRBC <0.01 LAB DTYP DTYPE Auto Diff Performed By: #### CBCDIF #### [facility] [address], [place] [address] 50G, 1HR GEST. Collected: 05/04/2018 Status: F Source: [place] GSCRN 3:42 PM [facility] REPOSITORY TYPE CODE TESTS RESULT OUT OF REFERENCE UNITS RANGE LAB GLUP 74-134 mg/dL Glucose 95 Screen, Preg Result Comment: [place] Congress of Obstetricians and Gynecologists (Blount/Gostan) guidelines state a gestational diabetes mellitus positive screen is made, in women not previously diagnosed with overt diabetes, when the 1 hr plasma glucose level is equal to or above 140 mg/dL. The [facility] Housing Counselor and [facility] [place] recommends a 135 mg/dL cutoff. Performed By: #### GLTGST #### [facility] [address] [place], [place] [address] PROGRESS Observed: 04/05/2018 Status: COMPLETED Source: [place] 3:12 PM [facility] REPOSITORY HNO ID: [id number] Author: Kandace Mendez Ma Service: (none) Author Type: (none) Type: Progress Notes Filed: 04/05/2018 3:31 PM Note Text: Influenza Vaccine Documentation: ? Patient is identified by name and date of : Yes ? Patient is older than 6 months of age: Yes ? Patient denies a severe allergy to any vaccine component or to a previous dose of influenza vaccine: Yes FOR EGG ALLERGY CONCERNS, REFER TO PROVIDER. ? Denies allergy to gelatin, formaldehyde, thimerosol :Yes ? Patient is afebrile and not moderately or severely ill: Yes ? Does the patient have a history of Gullian ?Marietta Syndrome (a severe paralytic illness): No ? Denies bone marrow transplant prior 6 months or solid organ transplant prior 3 months: Yes ? VIS sheet provided: Yes ? See Immunization Form in EpicCare for details of immunizations administered today. Kandace Mendez Ma PROGRESS Observed: 03/03/2018 Status: COMPLETED Source: [place] 1:20 PM [facility] REPOSITORY HNO ID: [id number] Author: Nash Reyes Service: (none) Author Type: Physician Type: Progress Notes Filed: 03/03/2018 1:20 PM Note Text: Anatomy ultrasound reviewed. No abnormalities identified. Follow up as clinically indicated. Please place copy in ob chart. Nash Reyes MD PROGRESS Observed: 03/03/2018 Status: COMPLETED Source: [place] 1:09 PM [facility] REPOSITORY HNO ID: [id number] Author: Jose Miguel Willis Service: (none) Author Type: Physician Type: Progress Notes Filed: 03/03/2018 1:10 PM Note Text: A bullock? fetus in utero with symmetric measurements Adequate growth (AGA). Estimated Date of Delivery: 07/22/18 EGA = 19w5d The anatomy appears normal. There are no evident malformations and /or effusions. No genetic markers are noted. The amniotic fluid volume is within normal limits. The sensitivity of ultrasound in the detection of malformations overall is approximately 35%. RECOMMENDATIONS: - Follow up ultrasound as clinically indicated SEQUENT SCRN SECOND Collected: 02/05/2018 Status: F Source: [place] [facility] PATIENTS ONLY 2:22 PM [facility] REPOSITORY TYPE CODE TESTS RESULT OUT OF REFERENCE UNITS RANGE LAB SE1PAP MoM 0.88 SE1 BETY A LAB SE2AFP MoM 0.74 SE2 AFP LAB SE2HCG MoM 0.78 SE2 hCG LAB SE2UE3 MoM 0.81 SE2 Unconj uE3 LAB SE2INH MoM 1.57 SE2 Dimrc Inhibin A LAB SE1HCG MoM 0.78 SE1 hCG LAB SE2INT Screen Negative SE2 Interp Screen Negative LAB SE2SDN SE2 Scrn Rsk 1:5900 Dn Synd LAB SE2ADN 1:850 SE2 Age Rsk Dn Snyd LAB SE2STS SE2 Scr Rsk <1:12892 Trsmy 13 LAB SE2STR SE2 Scr Rsk <1:21413 Trsmy18 LAB SE2SON SE2 Scr Rsk 1:7000 ONTD LAB SE2RS View Seq Scrn results in Second Trim Scanned Documents link when available. LAB SEQLRV SEQ Staff Reviewed by Review Mateusz Murdock MD, PhD ([id number]) Performed By: #### SEQL2 #### [facility] [email or web address] [address] [place], [place] [address] EMERGENCY DEPARTMENT Observed: 01/25/2018 Status: F Source: [place] SUMMARY 5:24 PM [facility] REPOSITORY [facility] Medical Records Department [address] [place] [address] Emergency Department Summary 01/25/18 1459 MR#: [id number] Acct: [id number] Name: MELIDA PARRISH Rep #: [id number] : 1990 27 From: Dewayne English MD PCP: Care Physician, No Primary Status: DEP ER - ER Visit Summary Date of Service: 01/25/18 Chief Complaint: Headache History of Present Illness: The patient is a 27 F who sees [facility] and Dr. Nash Reyes. She reports that she has a headache that is posterior eyes that began approximately 1115 this morning is gradually gotten worse. Is 3 out of 10 severity. States worsened by nothing relieved by nothing. She has had nausea without vomiting. She reports that these headache was preceded by seeing bright colored spots in her eyes bilaterally. She denies any blurred or double vision. She has no photophobia. Patient is at 14 weeks 5 days . She denies any vaginal bleeding. No abdominal pain. Physical Examination: Vitals: Stable. Afebrile. General: Well-nourished and well-developed. Head: Normocephalic atraumatic. Neck: Supple, no lymphadenopathy. No JVD. Nontender. Cardiovascular: Regular rate and rhythm. No murmurs. Respiratory: No respiratory distress. Clear to auscultation bilaterally. Abdominal: Soft, nontender, nondistended, normal bowel sounds. No guarding, rebound, or peritoneal signs. Back: Nontender. Extremities: Nontender, no edema. Skin: Normal color, no rash. Neurologic: Alert and oriented 3. Cranial nerves II through XII are intact. Normal strength and sensation. Psych: Normal affect. Emergency Department Course and Treatment: The patient has scotoma that are quite classic for a migraine headache. She was given a dose of Reglan and Benadryl IV. These resolved as did her headache. She had heart tones of 150 while here. Treatment Plan: Patient will be discharged instructions to follow-up with her primary care physician 1-2 days if not improving. Return to the emergency department for any worsening symptoms. Disposition: To home in improved and stable condition. Impression: 1. Migraine headache. 2. Second trimester . This note was generated with Inetecation software. It may contain incorrect words, spelling, and punctuation that were not noted in review of the chart prior to signing ED Disposition - Plan for ED Patient: Disposition: Home or Assisted Living Chief Complaint: Headache Instructions: ED Headache Migraine Prescriptions: Metoclopramide [Reglan] 10 mg PO 4X/DAY PRN #20 tablet PRN Reason: Headache Referrals: Doctor,Your [STAFF PHYSICIAN] - 1-2 Days if not improving What to do if you have Problems For any increased pain, shortness of breath, bleeding, nausea or vomiting, chest pain, or any unexpected problems, contact your Primary Care Provider. Call [facility] ([phone]) or report to the closest Emergency Room. Call 911 if necessary. 01/25/18 1724 <Electronically signed by Dewayne English MD> Date Dewayne English MD Cosigner Signature (If Indicated): Date CC: No Primary Care Physician SEQUENT SCRN FIRST Collected: 01/08/2018 Status: F Source: [facility] PATIENTS ONLY 11:38 AM CLINIC [facility] REPOSITORY TYPE CODE TESTS RESULT OUT OF REFERENCE UNITS RANGE LAB SE1PAP MoM 0.89 SE1 BETY A LAB SE1HCG MoM 0.78 SE1 hCG LAB SE1INT Final result pending second Final trimester SE1 result pending sample Interp second trimester sample LAB SE1SDN SE1 Scrn 1:11706 Rsk Dn Synd LAB SE1ADN 1:630 SE1 Age Rsk Dn Synd LAB SE1STR SE1 Scr <1:98507 Rsk Trsmy18 LAB SE1ATR SE1 Age 1:2200 Rsk Trsmy18 LAB SE1RS View Seq Scrn results in First Trim Scanned Documents link when available. LAB SEQLRV SEQ Staff Reviewed by Review Mateusz Murdock MD, PhD ([id number]) Performed By: #### SEQL1 #### [facility] [address] [place] [address] PROGRESS Observed: 01/08/2018 Status: COMPLETED Source: [place] 11:31 AM [facility] REPOSITORY HNO ID: [id number] Author: Jose Miguel Willis Service: (none) Author Type: Physician Type: Progress Notes Filed: 01/08/2018 11:33 AM Note Text: A single intrauterine gestational sac is noted with a regular outline. There is no decidual hemorrhage. The yolk sac is visualized and shows normal shape and echogenicity. A living single fetus is noted. The heart rate is within normal range. The CRL corresponds to the gestational age. Estimated Date of Delivery: 07/22/18 EGA = 12w1d Negative NT screen for Trisomy 21. The sensitivity of nuchal translucency measurement for Trisomy 21 is ~60%. The anatomy appears normal in the areas visualized. RECOMMENDATIONS: - The patient requested the sequential screening. The test has been ordered - Ultrasound examination at 18 to 20 weeks PROGRESS Observed: 12/14/2017 Status: COMPLETED Source: [place] 10:58 AM [facility] REPOSITORY HNO ID: [id number] Author: Nash Reyes Service: (none) Author Type: Physician Type: Progress Notes Filed: 12/14/2017 10:58 AM Note Text: lab reviewed, please place result in chart. Nash Reyes MD` TOXICOLOGY SCREEN,UR Collected: 12/11/2017 Status: F Source: [place] 5:08 PM [facility] REPOSITORY TYPE CODE TESTS RESULT OUT OF REFERENCE UNITS RANGE LAB UPCP2 Negative Negative Phencyclidin e, Urine Result Comment: Cutoff threshold at 25 ng/mL. LAB UBENZ2 Negative Benzodiazepines, Ur Negative Result Comment: Cutoff threshold at 200 ng/mL. LAB UCOC2 Negative Cocaine, Negative Urine Result Comment: Cutoff threshold at 300 ng/mL. LAB UAMPH2 Negative Amphetamines, Urine Negative Result Comment: Cutoff threshold at 1000 ng/mL. LAB UTHC2 Negative Cannabinoids, Urine Negative Result Comment: Cutoff threshold at 50 ng/mL. LAB UOPI2 Negative Opiates, Negative Urine Result Comment: Cutoff threshold at 300 ng/mL. LAB UBARB2 Negative Barbiturates, Urine Negative Result Comment: Cutoff threshold at 200 ng/mL. LAB UETOH <11 mg/dL <11 Ethanol, Urine LAB UOXYC Negative Oxycodone, Negative Urine Result Comment: Cutoff threshold at 100 ng/mL. Comment: Immunoassay screen only. Cross reactivity with other substances can occur with immunoassay screening. Detection of any drug(s) in this urine toxicology panel is presumptive only. These tests are for med ical purposes only and should not be used for compliance monitoring, legal, or forensic use. Samples should be within normal physiological conditions (e.g. pH). This assay does not include adulteration/specimen validity testing. In clinical settings, confirmatory testing is at the practitioner's discretion [1]. If clinically indicated, confirmation by high specificity, quantitative methodology, which includes adulteration/spec imen validity testing, may be requested on the same specimen through Client Services ([phone]) if contacted within 48 hours of initial testing. [1]Substance Abuse and Mental Health Services Administration (2012). Clinical Drug Testing in Primary Care Technical Assistance Publication Series 32. Department of Health and Human Services, [place], p.10. These tests were developed and their performance characteristics determined by [facility]'s Rashaun Hanna [facility] [place] ([facility]). They have not been cleared or a pproved by the FDA. [facility] is regulated under CLIA as qualified to perform high complexity testing. These tests are used for clinical purposes. They should not be regarded as investigational or for research. Performed By: #### UTOX2 #### [place] [id number] [place] [id number] Observed: 12/11/2017 Status: F Source: [place] URINE CULTURE 5:07 PM [facility] REPOSITORY Culture Result - 50,000 - <100,000 CFU/ml Normal urogenital elizabeth Performed By: #### URCUL #### [place] [id number] [place] [address] CBC Collected: 12/11/2017 Status: F Source: [place] 2:48 PM [facility] REPOSITORY TYPE CODE TESTS RESULT OUT OF REFERENCE UNITS RANGE LAB WBC 3.70-11.00 k/uL WBC 9.77 LAB RBC 3.90-5.20 m/uL RBC 4.31 LAB HGB 11.5-15.5 g/dL Hemoglobin 12.8 LAB HCT 36.0-46.0 % Hematocrit 40.4 LAB MCV 80.0-100.0 fL MCV 93.7 LAB MCH 26.0-34.0 pG MCH 29.7 LAB MCHC 30.5-36.0 g/dL MCHC 31.7 LAB RDWCV 11.5-15.0 % RDW-CV 13.8 LAB PLTCT 150-400 k/uL Platelet Count 224 LAB MPV 9.0-12.7 fL MPV 11.0 LAB ABSNUC <0.01 k/uL Absolute nRBC <0.01 Performed By: #### CBC, RUBIGG, SYPHGX, HBSAG, HIV12C #### [facility] [address] [place] [address] RUBELLA IGG ANTIBODY Collected: 12/11/2017 Status: F Source: [place] 2:48 PM [facility] REPOSITORY TYPE CODE TESTS RESULT OUT OF RANGE REFERENCE UNITS LAB RUBGQL Negative Abnormal Rubella IgG Positive Alert Ab, Qual Result Comment: Sample is considered positive for IgG antibodies to rubella virus. A positive result indicates previous exposure to Rubella virus or vaccination. LAB RUBQNT Index Value Rubella IgG Ab 10.50 Result Comment: Index values are interpreted as follows: Negative specimens <0.90 Equivocol specimens 0.90 to 0.99 Positive specimens >0.99 The magnitude of the measured result is not indicative of the amount of antibody present. Performed By: #### CBC, RUBIGG, SYPHGX, HBSAG, HIV12C #### [place] [address] SYPHILIS IGG WITH Collected: 12/11/2017 Status: F Source: [facility] 2:48 PM [facility] REPOSITORY TYPE CODE TESTS RESULT OUT OF REFERENCE UNITS RANGE LAB SYPHQL Nonreactive Syphilis IgG, Nonreactive Qual Result Comment: In conjunction with this result, the immune status of the patient should be evaluated based on their clinical status, related risk factors, and other diagnostic test results. LAB SYPHLG AI Syphilis IgG <0.2 Result Comment: Antibody index is interpreted as follows: Non reactive SPECIMENS <=0.8 Weak reactive SPECIMENS 0.9 to 5.9 Reactive SPECIMENS >=6.0 Performed By: #### CBC, RUBIGG, SYPHGX, HBSAG, HIV12C #### [place] [address] [place] [id number] HEPATITIS B SURF. AG Collected: 12/11/2017 Status: F Source: [place] 2:48 PM [facility] [place] REPOSITORY TYPE CODE TESTS RESULT OUT OF REFERENCE UNITS RANGE LAB HBSAG Negative Hepatitis B Negative Surf. Ag Performed By: #### CBC, RUBIGG, SYPHGX, HBSAG, HIV12C #### [facility] [address] [place] [id number] HIV 12 COMBO (AG/AB) Collected: 12/11/2017 Status: F Source: [place] 2:48 PM [facility] REPOSITORY TYPE CODE TESTS RESULT OUT OF REFERENCE UNITS RANGE LAB HVAGAB Non Reactive HIV Non Reactive 12 Ag/Ab Result Comment: (NOTE) HIV Information: [place] Rev. Code 3701.243(E): This information has been disclosed to you from confidential records protected from disclosure by state law. You shall make no further disclosure of this information without the specific, written, and informed release of the individual to whom it pertains, or as otherwise permitted by state law. A general authorization for the release of medical or other information is not sufficient for the purpose of the release of HIV test results or diagnoses. Performed By: #### CBC, RUBIGG, SYPHGX, HBSAG, HIV12C #### [place] [address] [place] [address] 50G, 1HR GEST. Collected: 12/11/2017 Status: F Source: [facility] 2:48 PM [facility] REPOSITORY TYPE CODE TESTS RESULT OUT OF REFERENCE UNITS RANGE LAB GLUP 74-134 mg/dL Glucose 107 Screen, Preg Result Comment: [place] Congress of [employer]stetricians and Gynec[employer] (Blount/Coustan) guidelines state a gestational diabetes mellitus positive screen is made, in women not previously diagnosed with overt diabetes, when the 1 hr plasma glucose level is equal to or above 140 mg/dL. The [facility] Housing Counselor and [facility] [place] recommends a 135 mg/dL cutoff. Performed By: #### GLTGST #### [facility] [address] [place] [id number] TYPE AND SCR,PRENATL Collected: 12/11/2017 Status: F Source: [place] 2:48 PM [facility] REPOSITORY TYPE CODE TESTS RESULT OUT OF REFERENCE UNITS RANGE LAB %ABR A ABO/RH(D) POSITIVE LAB % Antibody NEG Screen Performed By: #### TSPN #### [facility] [address] [place], [place] [address] PROGRESS Observed: 12/11/2017 Status: COMPLETED Source: [place] 1:18 PM [facility] REPOSITORY HNO ID: [id number] Author: Nash Reyes Service: (none) Author Type: Physician Type: Progress Notes Filed: 12/11/2017 2:00 PM Note Text: INITIAL OB ASSESSMENT OB Provider: Nash Reyes MD HPI: Melida Parrish is a 27 year old female here to establish Obstetrical Care. Patient's last menstrual period was 10/15/2017 (approximate). from OB Dating Form. Cycle length: 28-30 days Complaints: nausea without vomiting was planned. Obstetric History T1 L1 SAB0 TAB0 Ectopic0 Multiple0 Live Births1 Prior : never History of 4th degree laceration: No Patient's Risk Screening for delivery: History of abnormal pap: No Prior treatment for cervical dysplasia: none. 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 Patient BMI over 30? 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 (Patient not taking: Reported on 11/26/2017 ) Wpxxkmfq-St-Ite-Fe-FA tab Take 1 tablet by mouth. No current facility-administered medications on file prior to visit. Review of Systems: GENERAL: Negative for: Fever or Chills HEENT: Negative for: Headache, Impaired Vision, Ringing in Ears, Nosebleeds NECK: Negative for: Swelling, Pain, Stiffness RESPIRATORY: Negative for: Cough, Shortness of breath, Wheezing GASTROINTESTINAL: Negative for: Heartburn, Constipation, Diarrhea, Blood in stool, Vomiting MUSCULOSKELETAL: Negative for: Muscle or joint pain, stiffness, Joint swelling NEUROLOGIC/PSYCHIATRIC: Negative for: Weakness, Paralysis, Numbness, Tingling, Tremor, Anxiety, Depression, Memory loss SKIN: Negative for: Rash, Itching GENITOURINARY: Negative for: vaginal itching, vaginal discharge, hematuria or dysuria PHYSICAL EXAM: LMP 10/15/2017 GENERAL: pleasant female in no apparent distress DERMATOLOGY: Normal, without lesions, non-icteric and non-hirsute NECK: Supple, full range of motion, no adenopathy and thyroid normal CHEST: Normal inspiratory effort BREAST: soft, non-tender, symmetric, no dominant mass, normal nipple-areolar complex, no lymphadenopathy and no nipple discharge ABDOMEN: soft, non-tender and no masses NEURO: alert and oriented x3,exam grossly non-focal PELVIS: External genitalia normal without lesions. Perineal body intact. No vaginal or cervical lesions. Cervix closed. Uterus 8 week size. No adnexal masses or tenderness. Clinical Pelvimetry: Pelvimetry clinically assessed as adequate Limited OB ultrasound exam: single intrauterine , positive cardiac activity and crown-rump length c/w 8 w 0d ASSESSMENT: 27 year old at 8w1d wks gestational age PLAN: 1) Patient oriented to practice. Discussed nutrition, folic acid supplementation, dietary guidelines, exercise, smoking, alcohol, caffeine, and drug use. Discussed routine OB labs including STD/HIV. Discussed aneuploidy screening options including serum screening and nuchal translucency. CF carrier screening discussed and declined. recommend asa 81 mg a day at 12 weeks d/w her h/o GDM, 1 hr today Follow up in 4 weeks or sooner prn. Nash Reyes MD GC/CHLAMYDIA AMPLIF Collected: 12/11/2017 Status: F Source: [place] 2:19 AM CLINIC [facility]AMP[facility] REPOSITORY TYPE CODE TESTS RESULT OUT OF REFERENCE UNITS RANGE LAB GCCTSR GC/Chlam Amp Cervix Source LAB GCAMPL GC Negative Amplification for Neisseria gonorrhoeae by amplification. LAB CLAMPL Chlamydia Negative Amplif for Chlamydia trachomatis by amplification. Performed By: #### GCCT #### [facility] [address] [place], [place] [address] CNNURSE Observed: 11/26/2017 Status: COMPLETED Source: [place] 2:30 PM [facility] REPOSITORY Nurse Visit (WOOB) MELIDA PARRISH ([id number]) 1990 F Date Time Provider Department 11/26/17 2:[address] [facility] WSTR WOOB During your visit today, we recorded the following information about you: Last Period 10/15/17 Latasha Marquez RN 11/26/2017 2:55 PM Signed SEQUENTIAL SCREENINGS The [facility] offers sequential screenings for women who are interested in screenings for chromosomal abnormalities and certain defects during a . The sequential screen combines ultrasound and blood tests to determine the risk of chromosomal abnormalities, including Down's Syndrome (Trisomy 21) and Trisomy 18, as well as open neural tube defects including spina bifida. Ultrasound examination is performed between 11 weeks and 13 weeks gestational age. Blood tests are drawn after the ultrasound and again later in the between 15 and 21 weeks gestational age. Please let your physician know if you are interested in this testing. It will require an appointment with our mail technician. This is not an ultrasound performed by a physician in our office during a routine visit. SIGNS AND SYMPTOMS OF LABOR 1. Contractions every 10 minutes or more often 2. Clear, pink, or brownish fluid (water) leaking from vagina 3. Feeling that baby is pushing down, pressure 4. Low, dull backache 5. Cramps that feel like a period 6. Cramps with or without diarrhea If you notice any of the above symptoms, contact our office at [phone] and ask to speak with a nurse. After hours, you can call doctors registry at [phone] OR call [facility] at [phone] and ask to have the doctor sonography technician paged. If you consider this an emergency, dial [phone]--1 or go to your nearest emergency department. Cord-Blood Banking Up until recently, the umbilical cord--along with the blood that remained in it after a baby was born and the cord cut--was simply discarded by the hospital. Then, in the late , researchers discovered that cord blood possessed unusual properties that made it useful in the treatment of patients with some cancers and other illnesses. While the actual process of collecting cord blood is straightforward, many parents are not even aware that this option now exists, much less familiar with all the issues involved. The case for saving your baby's cord blood The blood running back and forth between your baby and the placenta is full of immature cells called stem cells. Unlike embryonic stem cells, which have the ability to develop into any type of body cell, cord-blood stem cells already are locked into a certain, vital function: making all the different components of the blood, such as platelets, white blood cells, and red blood cells-serving, in effect, like bone marrow. When transfused into a patient whose own blood cells have faulty genetic coding or have been destroyed by chemotherapy or other cancer treatments, the cord-blood cells can implant themselves in the bone marrow and generate legions of new, healthy cells. These days, cord-blood transplants most commonly are used in cancer patients when a donor can't be found for a bone-marrow transplant. The treatment is particularly effective in young patients-the [facility] Cord Blood Bank reports a 70 percent success rate in children, but only 20 to 40 percent in adults. Researchers envision improving those odds and see many future applications as well, such as curing sickle cell disease and other blood-related genetic illnesses. So there is a possibility that your child, or someone else, may need these super-healthy and versatile cells one day. The drawbacks Aside from not knowing about this medical option, the main reason most people do not save their baby's stem cells is cost. In a private blood bank, the initial costs run from $275 to $1,500. Most also charge a yearly storage fee of $50 to $95. The advantage of using a private bank is that your sample is saved for only you to use. An alternative to private banking Public cord-blood gunter are an alternative. These cost no money to use, but your sample is not specifically saved for you. Another person with a more immediate need may use it. If the time should come that you need stem cells, yours may still be available, or you may use donations from other people without charge. You also can direct your sample to go to a relative with an immediate need if the blood type matches. Anyone else needing to use stem cells from a public bank who has not been a donor must pay for it, sometimes tens of thousands of dollars. Will my family benefit from saving stem cells? Right now, situations in which stem cells would be helpful are quite rare. As mentioned earlier, stem-cell transplants are most commonly used for rare genetic conditions and for some types of cancer, including leukemia and lymphoma. And even with these present uses, many questions remain. In cancer treatment, for example, some researchers are concerned about the wisdom of transplanting back into the child the same cells that already showed a propensity to become malignant. Doctors also aren't sure if the number of cells taken at the time of would be enough to treat a full-grown 16-year-old. It is also not completely clear how active the cells would be after years of being stored. The treatment is so new and rare, we just don't have the data yet to resolve these important issues. What do the experts say? The [place] [employer] encourages philanthropic blood banking in public gunter, but only for families with a current or potential need. Blood-bank proponents encourage any kind of banking, pointing out that research is getting closer and closer to many diverse, live-saving applications. How do I decide? Each family must weigh the pros and cons for themselves. Some families say that any cost is worth their peace of mind. Others say that in the face of uncertainty about the effectiveness of the treatment, they will use their resources elsewhere. Some choose the middle ground of donating publicly, knowing that their sample might benefit another family, if not themselves. For more information, ask your doctor or nurse, and be sure to check out our article on the technical aspects of cord-blood banking. Technical Aspects of Cord-Blood Banking If you are interested in storing your baby's umbilical-cord blood because of its possible use in emerging medical treatments, you must make arrangements with a blood bank before your child is born. The collection procedure is quite simple: After delivery of the baby, the umbilical cord is clamped and cut in the usual way. The blood that remains in the umbilical-cord vessels is then collected in sterile containers. The blood may be removed from the cord with a large needle or allowed to flow freely, depending on the company's collection system. The containers may look like large test tubes or like the plastic bags used in a blood bank. It does not cause the mother or the baby any pain to collect the blood, and no blood is taken that the baby needs at the moment. The nurse, natural resources instructor, or physician will then label the samples, check them over with you, and package them for a special pickup arranged with a commercial carrier. When the blood arrives at the blood-bank facility, it is processed and the parents are notified. It is then kept in an advanced storage system for years. How do I know that my sample is safe? Power outages and bankruptcies potentially could threaten any organization, but so far none have been reported. It is to be hoped that the scientists in these gunter would arrange for safe transfer to another facility if the need arose. YOU MUST MAKE ARRANGEMENTS AHEAD OF TIME! Public cord-blood gunter--DONATION: [employer] [phone] [facility]'s Placental Blood Program, [facility] Umbilical Cord Blood Bank, Private cord-blood gunter--SAVING FOR YOUR OWN USE: [employer], (I think this is the least expensive) [employer] [phone] [employer], ([phone]) [employer] [place] Cord Blood [facility], [phone], [phone] [place] [facility], Cord Blood Registry, (149) [employer], An Internet search may provide you with additional listings. Referring Provider: SELF [200] Allergies As of Date: 11/26/2017 Noted Allergy Reaction AUGMENTIN (AMOXICILLIN-POT CLAVUL*08/27/2015 16 - Unknown Comments: Childhood reaction CECLOR (CEFACLOR) 08/27/2015 14 - Other: See Comments Comments: Childhood reaction PENICILLINS 08/27/2015 14 - Other: See Comments Comments: Childhood reaction SEPTRA (SULFAMETHOXAZOLE-TRIMETHO*08/27/2015 16 - Unknown Comments: Childhood reaction Date Reviewed: 11/26/2017 Reviewed by: Latasha Marquez RN - Fully Assessed Reason for Visit: Care [86] Cmt: Pre-New OB Primary Visit Diagnosis:Encounter for supervision of normal in first trimester, unspecified [Z34.91] Other Visit Diagnoses:Obesity in [O99.210] Tobacco use during , antepartum [O99.330] History of kidney stones [Z87.442] Family history of defects [Z82.79] Order(s):DAYRON PT ED PROVINCE ARCHIVIST [] Order #: [id number]: 1 FUTURE [facility] PT ED PROVINCE ARCHIVIST [] Order #: [id number]: 1 FUTURE [facility] PT ED ANESTHESIA [[id number]] Order #: [id number]: 1 FUTURE DAY[facility] PT ED PROVINCE ARCHIVIST [] Order #: [id number]: 1 FUTURE [facility] WHAT TO EXPECT DURING YOUR HOSPITAL STAY [] Order #: [id number]: 1 FUTURE DAYRON PT ED PROVINCE ARCHIVIST [] Order #: [id number]: 1 FUTURE [facility]RON PT ED PROVINCE ARCHIVIST [] Order #: [id number]: 1 FUTURE [facility]RON PT ED PROVINCE ARCHIVIST [] Order #: [id number]. #:[id number]: 1 DAYRON PT ED PROVINCE ARCHIVIST [] Order #: [id number]. #:[id number]: 1 [facility] PT ED ANESTHESIA [[id number]] Order #: [id number]. #:[id number]: 1 DAY[facility] PT ED PROVINCE ARCHIVIST [] Order #: [id number]. #:[id number]: 1 [facility] WHAT TO EXPECT DURING YOUR HOSPITAL STAY [] Order #: [id number]. #:[id number]: 1 DAYRON PT ED PROVINCE ARCHIVIST [] Order #: [id number]. #:[id number]: 1 DAY[facility] PT ED PROVINCE ARCHIVIST [] Order #: [id number]. #:[id number]: 1 Prescriptions as of 11/26/2017 Sig: VITAMIN,CALCIUM,MINE* Take 1 tablet by mouth. VIT-IRON 18 MG-FOLAT* Take 1 tablet by mouth once d* Patient not taking: Reported on 11/26/2017 Problem List As Of Date 11/26/2017 Noted Resolved Nausea and vomiting in [O21.9] INVALID FOR*10/24/2015 More... Family history of defects [Z82.79] INVALID FOR*05/05/2016 More... Patient requested diagnostic testing [Z01.89] INVALID FOR*10/24/2015 More... Quit smoking [Z87.891] INVALID FOR*10/24/2015 More... Encounter for supervision of normal first pregn*INVALID FOR*05/05/2016 Tobacco use affecting in second trime*INVALID FOR*05/05/2016 More... Abnormal glucose complicating [O99.81*INVALID FOR*05/05/2016 More... Obesity in [O99.210] INVALID FOR* More... Tobacco use during , antepartum [O99.3*INVALID FOR* More... History of kidney stones [Z87.442] INVALID FOR* More... Other instructions from your clinician: SEQUENTIAL SCREENINGS [facility] offers sequential screenings for women who are interested in screenings for chromosomal abnormalities and certain defects during a . The sequential screen combines ultrasound and blood tests to determine the risk of chromosomal abnormalities, including Down's Syndrome (Trisomy 21) and Trisomy 18, as well as open neural tube defects including spina bifida. Ultrasound examination is performed between 11 weeks and 13 weeks gestational age. Blood tests are drawn after the ultrasound and again later in the between 15 and 21 weeks gestational age. Please let your physician know if you are interested in this testing. It will require an appointment with our mail technician. This is not an ultrasound performed by a physician in our office during a routine visit. SIGNS AND SYMPTOMS OF LABOR 1. Contractions every 10 minutes or more often 2. Clear, pink, or brownish fluid (water) leaking from vagina 3. Feeling that baby is pushing down, pressure 4. Low, dull backache 5. Cramps that feel like a period 6. Cramps with or without diarrhea If you notice any of the above symptoms, contact our office at [phone] and ask to speak with a nurse. After hours, you can call [facility] at [phone] OR call [facility] at [phone] and ask to have the doctor sonography technician paged. If you consider this an emergency, dial [phone]--1 or go to your nearest emergency department. Cord-Blood Banking Up until recently, the umbilical cord--along with the blood that remained in it after a baby was born and the cord cut--was simply discarded by the hospital. Then, in the late , researchers discovered that cord blood possessed unusual properties that made it useful in the treatment of patients with some cancers and other illnesses. While the actual process of collecting cord blood is straightforward, many parents are not even aware that this option now exists, much less familiar with all the issues involved. The case for saving your baby's cord blood The blood running back and forth between your baby and the placenta is full of immature cells called stem cells. Unlike embryonic stem cells, which have the ability to develop into any type of body cell, cord-blood stem cells already are locked into a certain, vital function: making all the different components of the blood, such as platelets, white blood cells, and red blood cells-serving, in effect, like bone marrow. When transfused into a patient whose own blood cells have faulty genetic coding or have been destroyed by chemotherapy or other cancer treatments, the cord-blood cells can implant themselves in the bone marrow and generate legions of new, healthy cells. These days, cord-blood transplants most commonly are used in cancer patients when a donor can't be found for a bone-marrow transplant. The treatment is particularly effective in young patients- the [facility] Cord Blood Bank reports a 70 percent success rate in children, but only 20 to 40 percent in adults. Researchers envision improving those odds and see many future applications as well, such as curing sickle cell disease and other blood-related genetic illnesses. So there is a possibility that your child, or someone else, may need these super-healthy and versatile cells one day. The drawbacks Aside from not knowing about this medical option, the main reason most people do not save their baby's stem cells is cost. In a private blood bank, the initial costs run from $275 to $1,500. Most also charge a yearly storage fee of $50 to $95. The advantage of using a private bank is that your sample is saved for only you to use. An alternative to private banking Public cord-blood gunter are an alternative. These cost no money to use, but your sample is not specifically saved for you. Another person with a more immediate need may use it. If the time should come that you need stem cells, yours may still be available, or you may use donations from other people without charge. You also can direct your sample to go to a relative with an immediate need if the blood type matches. Anyone else needing to use stem cells from a public bank who has not been a donor must pay for it, sometimes tens of thousands of dollars. Will my family benefit from saving stem cells? Right now, situations in which stem cells would be helpful are quite rare. As mentioned earlier, stem-cell transplants are most commonly used for rare genetic conditions and for some types of cancer, including leukemia and lymphoma. And even with these present uses, many questions remain. In cancer treatment, for example, some researchers are concerned about the wisdom of transplanting back into the child the same cells that already showed a propensity to become malignant. Doctors also aren't sure if the number of cells taken at the time of would be enough to treat a full-grown 16-year-old. It is also not completely clear how active the cells would be after years of being stored. The treatment is so new and rare, we just don't have the data yet to resolve these important issues. What do the experts say? The [place] [employer] encourages philanthropic blood banking in public gunter, but only for families with a current or potential need. Blood-bank proponents encourage any kind of banking, pointing out that research is getting closer and closer to many diverse, live-saving applications. How do I decide? Each family must weigh the pros and cons for themselves. Some families say that any cost is worth their peace of mind. Others say that in the face of uncertainty about the effectiveness of the treatment, they will use their resources elsewhere. Some choose the middle ground of donating publicly, knowing that their sample might benefit another family, if not themselves. For more information, ask your doctor or nurse, and be sure to check out our article on the technical aspects of cord-blood banking. Technical Aspects of Cord-Blood Banking If you are interested in storing your baby's umbilical- cord blood because of its possible use in emerging medical treatments, you must make arrangements with a blood bank before your child is born. The collection procedure is quite simple: After delivery of the baby, the umbilical cord is clamped and cut in the usual way. The blood that remains in the umbilical-cord vessels is then collected in sterile containers. The blood may be removed from the cord with a large needle or allowed to flow freely, depending on the company's collection system. The containers may look like large test tubes or like the plastic bags used in a blood bank. It does not cause the mother or the baby any pain to collect the blood, and no blood is taken that the baby needs at the moment. The nurse, natural resources instructor, or physician will then label the samples, check them over with you, and package them for a special pickup arranged with a commercial carrier. When the blood arrives at the blood- bank facility, it is processed and the parents are notified. It is then kept in an advanced storage system for years. How do I know that my sample is safe? Power outages and bankruptcies potentially could threaten any organization, but so far none have been reported. It is to be hoped that the scientists in these gunter would arrange for safe transfer to another facility if the need arose. YOU MUST MAKE ARRANGEMENTS AHEAD OF TIME! Public cord-blood gunter--DONATION: [employer] [phone] [facility]'s Placental Blood Program, [facility] Umbilical Cord Blood Bank, Private cord-blood gunter--SAVING FOR YOUR OWN USE: [employer], (I think this is the least expensive) [employer] [phone] [employer], (724) [facility] Cord Blood Bank, [phone]) 700-CORD Cells, [phone] 486-BABY [place] [facility], Cord Blood Registry, (633) [facility] [employer], An Internet search may provide you with additional listings. Disposition: Return in 2 weeks (on 12/11/2017) for New OB with Dr Reyes. Follow-up and Disposition History Recorded Encounter Status:Closed by LATASHA MARQUEZ RN on 11/26/17 URGENT CARE VISIT Observed: 10/09/2017 Status: F Source: [place] REPORT 12:44 PM [facility] Now [address] [place] [address] OFFICE VISIT Date of Service: 10/09/17 MR#: [id number] Acct: [id number] Name: MELIDA PARRISH Rep #: [id number] : 1990 Provider: Chaim DIGGS Age/Sex: 27/F Location: [facility] Status: Signed Intake Vital Signs10/09/17 Height 5 ft 6 in Intake Visit Reasons: [place] PE Allergies amoxicillin [From Augmentin] Allergy (Verified 10/09/17 11:59) Rash cefaclor [From Ceclor] Allergy (Verified 10/09/17 11:59) Rash clavulanic acid [From Augmentin] Allergy (Verified 10/09/17 11:59) Rash clindamycin [From Cleocin] Allergy (Verified 10/09/17 11:59) Rash Penicillins Allergy (Verified 10/09/17 11:59) Rash sulfamethoxazole [From Septra] Allergy (Verified 10/09/17 11:59) Rash trimethoprim [From Septra] Allergy (Verified 10/09/17 11:59) Rash Medications ibuprofen 200 mg capsule 200 mg PO TID-QID PRN 10/09/17 [History Confirmed 10/09/17] PFSH Medical History Back pain (Acute) Irregular periods (Acute) Kidney stones (Acute) Seasonal allergic rhinitis (Acute) Social History Smoking Status: Current every day smoker HPI HPI Details: MELIDA LINCRIS, is a 27 F who presents to the office today for preemployment physical. See corresponding scanned documents with today's date. Office Procedures Physical Exam Coding PE Coding Pre-employment PE: Yes Assessment AND Plan Problems 1. Physical exam, pre-employment Z02.1 Status Acute Coding Level of Care Code No Charge Diagnoses Physical exam, pre-employment Z02.1 Additional Codes PE Coding - Pre-employment PE: Yes (PREPE) Comment Bill as a preemployment physical 10/09/17 1244 <Electronically signed by Chaim DIGGS> Date Chaim DIGGS Cosigner Signature: Date (if applicable) CC: EMERGENCY DEPARTMENT Observed: 08/31/2017 Status: F Source: [place] SUMMARY 3:02 PM [facility] REPOSITORY [facility] Medical Records Department [address] [place] [address] Emergency Department Summary 08/30/17 1231 MR#: [id number] Acct: [id number] Name: MELIDA PARRISH Rep #: [id number] : 1990 27 From: Dewayne English MD PCP: Care Physician, No Primary Status: DEP ER - ER Visit Summary Date of Service: 08/30/17 Chief Complaint: Numbness History of Present Illness: The patient is a 27 F who goes to [facility]. She reports that approximately 830 this morning she had the onset of a headache. Is diffuse in location. She describes as an aching pain. Is 5 out of 10 severity. She has had similar headaches previously. Patient reports that approximately 1 hour later she had numbness that began in her right first through third fingers while she was doing her typical job duties. She is right-hand dominant. She reports that she has never had this before. A few minutes later she developed right facial numbness. That has now resolved. It lasted proximally 5 minutes. Following this however she has numbness that is extended over her entire right hand. Patient reports that her father has a history of MS and was diagnosed at approximately her age. Physical Examination: Vitals: Stable. Afebrile. Neurological: Cranial nerves II through XII are intact. 5 out of 5 strength throughout. Normal sensation to light touch throughout. Normal umlvnv-mtjm-kfnscd and jhxb-kzbv-fkmp bilaterally. Normal gait. She has no paresthesias on exam, specifically in her right hand. General: A AND O x 3. NAD. Cardiovascular exam: Regular rate and rhythm, no murmur, rub or gallop. Respiratory exam: Clear to auscultation bilaterally. No wheezes or stridor. Abdominal exam: Soft, nontender, nondistended, normal bowel sounds. No peritoneal signs. Extremity: No clubbing, cyanosis, or edema. 2+ radial pulse bilaterally. Test Results: CBC is normal. Chem-7 is normal. Patency test is negative. CT head is normal. Emergency Department Course and Treatment: Patient had an IV placed. She was given Toradol, Benadryl, and Reglan for her headache. She is resting comfortably. Treatment Plan: Patient will be discharged instructions to follow-up with her primary care physician for further evaluation and treatment. I did discuss the likelihood that she would need an MRI to rule out that this is an initial onset of multiple sclerosis. Return to the emergency department for any worsening symptoms. Disposition: To home in improved and stable condition. Impression: 1. Paresthesias right hand. 2. Family history of multiple sclerosis. This note was generated with [employer] dictation software. It may contain incorrect words, spelling, and punctuation that were not noted in review of the chart prior to signing ED Disposition - Plan for ED Patient: Disposition: Home or Assisted Living Chief Complaint: Numb/Ting Instructions: ED Paraesthesias Referrals: Alexis Craig [NON-STAFF] - As soon as possible What to do if you have Problems For any increased pain, shortness of breath, bleeding, nausea or vomiting, chest pain, or any unexpected problems, contact your Primary Care Provider. Call [facility] ([phone]) or report to the closest Emergency Room. Call 911 if necessary. 08/31/17 1500 <Electronically signed by Dewayne English MD> Date Dewayne English MD Cosigner Signature (If Indicated): Date CC: No Primary Care Physician CBC W/DIFF, AUTOMATED Collected: 08/30/2017 Status: F Source: KO 12:55 PM [facility] REPOSITORY TYPE CODE TESTS RESULT OUT OF RANGE REFERENCE UNITS LAB L100.1000 4.4-11.0 K/mm3 Normal WBC 6.9 LAB L100.1200 4.2-5.4 M/mm3 Normal RBC 4.59 LAB L100.1300 12.0-15.0 g/dl Normal HGB 13.5 LAB L100.1400 37-47 % Normal HCT 41.7 LAB L100.1500 81-99 fL Normal MCV 90.8 LAB L100.1600 27.0-32.0 pg Normal MCH 29.4 LAB L100.1700 32-36 g/gl Normal MCHC 32.4 LAB L100.1810 11.6-14.6 % Normal RDW CV 13.3 LAB L100.1820 35.1-43.9 fl Normal RDW SD 43.8 LAB L100.1900 150-450 K/mm3 Normal PLT 242 LAB L100.2000 6.2-12.0 fl Normal MPV 10.2 LAB L100.2100 47-70 % Normal NEUT% 64.6 LAB L100.2200 19-41 % Normal LY% 26.8 LAB L100.2300 0-10 % Normal MONO% 6.3 LAB L100.2400 0-5 % Normal EO% 2.0 LAB L100.2500 0-1 % Normal BASO% 0.3 LAB L100.2550 0.0-0.9 % Normal IM GRAN % 0.000 Result Comment: IG% - Immature Granulocytes (promyelocytes, myelocytes and metamyelocytes) > 1% indicates that a LEFT SHIFT is Present. LAB L100.2620 2.0-7.7 X10 3/uL Normal Absolute Neut 4.5 LAB L100.2720 0.83-4.51 X10 3/ul Normal Absolute Lymph 1.86 Performed By: #### L100.0100 #### [facility] [address] [place], [place], [id number] BASIC METABOLIC Collected: 08/30/2017 Status: F Source: KO PROFILE (BMP) 12:55 PM [facility] REPOSITORY TYPE CODE TESTS RESULT OUT OF RANGE REFERENCE UNITS LAB L501.0100 74-106 mg/dL Normal GLU 84 Result Comment: Please note revised GLUCOSE reference range effective 2017. LAB L501.1000 7-18 mg/dL Normal BUN 8 LAB L501.1100 0.55-1.02 mg/dL Normal CREAT,SERUM 0.63 Result Comment: The validity of the calculated GFR AND GFRAA in patients over 70 years has not been determined. Clinical correlation is essential. LAB L501.1110 >60 mL/min Normal EST GFR 119 Result Comment: Non- GFR Calc LAB L501.1115 >60 mL/min Normal EST GFR - AA 144 Result Comment: GFR Calc LAB L501.1255 ml/min Normal Estimated CRCL 124.46 LAB L501.1300 10-20 RATIO BUN/CRE Normal 12.7 LAB L501.2200 8.5-10 mg/dL .1 CA Normal 8.6 LAB L501.5300 136-14 mmol/L 5 NA Normal 140 LAB L501.5600 3.5-5. mmol/L 1 K Normal 3.7 LAB L501.5900 98-107 mmol/L CL Normal 107 LAB L501.6100 21.0-3 mmol/L 2.0 CO2 Normal 29.0 LAB L501.6200 5-15 Low GAP 4 Performed By: #### L500.2500 #### [facility] [address] [place], [address] ,SERUM,HCG QUALI. Collected: Status: F Source: KO 08/30/2017 12:55 PM [facility] REPOSITORY TYPE CODE TESTS RESULT OUT OF REFERENCE UNITS RANGE LAB L700.7000 0-9 Nonpreg Negative Normal HCGSQUAL NEGATIVE LAB L700.6700 =>Qualitative mIU/mL Normal HCG Qual < 1 triggr Performed By: #### L700.6800 #### [facility] [address] [place], [address] BRAIN/HEAD WITHOUT Observed: 08/30/2017 Status: F Source: [place] CONTRAST 12:34 PM [facility] REPOSITORY [facility] Imaging Services [address] [address] Brain/Head without Contrast MR#: [id number] Acct: [id number] Name: MELIDA PARRISH Rep #: [id number] : 1990 F 27 From: Cirilo Owens MD PCP: Care Physician, No Primary Status: REG ER Study: Brain/Head without Contrast Date of Exam: 08/30/17 Exam# [id number] Ordering Dr: Dewayne English MD STUDY: CT BRAIN WITHOUT CONTRAST REASON FOR EXAM: Female, 27 years old. Facial numbness. Hand numbness. RADIATION DOSAGE (If Supplied By Facility): CTDIvol = ( 44.99 ) mGy, DLP = ( 745.49 ) mGycm TECHNIQUE: Transaxial CT imaging of the brain was performed without administration of intravenous contrast material. Individualized dose optimization techniques were used for this CT. COMPARISON: None. FINDINGS: Normal soft tissue structures. Normal calvarium. Normal size ventricles and extra-axial spaces for the patient's age. Normal white matter tracts of the cerebral hemispheres. Normal basal ganglia and thalami. Normal brainstem. Normal cerebellum. There is no intracranial hemorrhage. There are no findings of an acute ischemic infarction. Normal visualized paranasal sinuses. CT/Brain/Head without Contrast IMPRESSION: Normal unenhanced CT scan of the brain. Electronically Signed: Cirilo Owens MD at 13:39 EST , Service support , CC: No Primary Care Physician; Dewayne English MD Stone Breaker: Signed ALLERGIES ALLERGIES DATE TYPE / CODE NAME / CODE REACTION SEVERITY SOURCE 07/15/2018 Drug Penicillins/F001 Rash Unknown [place] Allergy/017987019( 568959(RXNORM) [facility] SN[facility]) Hospital Repository 07/15/2018 Drug cefaclor/U192288 Rash Unknown [place] Allergy/907084144( 726(RXNORM) [facility] SNOM[facility]) Hospital Repository 07/15/2018 Drug clindamycin/F006 Rash Unknown [place] Allergy/770250250( 961574(RXNORM) [facility] SN[facility]) Hospital Repository 07/15/2018 Drug clavulanic Rash Unknown [place] Allergy/520181683( acid/G522465343( Community SNOMED CT) RXNORM) Hospital Repository 07/15/2018 Drug sulfamethoxazole Rash Unknown [place] Allergy/367827082( /N484858074(RXNO [facility] SNOMED [facility]) RM) Hospital Repository 07/15/2018 Drug trimethoprim/F00 Rash Unknown [place] Allergy/926961660( 6161684(RXNORM) [facility]) Hospital Repository 07/15/2018 Drug amoxicillin/F006 Rash Unknown [place] Allergy/528526955( 129926(RXNORM) [facility] SN[facility]) Hospital Repository 01/25/2018 DRUG CLINDAMYCIN RASH [place] INGREDI/137113675( Clinic Main SNOMED [facility]) [place] Repository 08/27/2015 DRUG/739074245(SNO AMOXICILLIN-POT UNKNOWN [place] [employer]) CLAVULANATE Clinic Main [place] Repository 08/27/2015 DRUG CEFACLOR OTHER: SEE C [place] INGREDI/062448600( Clinic Main SNOMED CT) [place] Repository 08/27/2015 Drug PENICILLINS OTHER: SEE C [place] Class/601104336(SN Clinic Main OMED CT) [place] Repository 08/27/2015 DRUG/433296171(SNO SULFAMETHOXAZOLE UNKNOWN [place] [address] [address]) -TRIMETHOPRIM Clinic Main [place] Repository Miscellaneous amoxicillin [place] Allergy/959322388( [facility] SNOMED CT) System Repository Drug/780937808(SNO penicillins [facility]) [facility] Repository Drug/750807334(SNO sulfa drugs [facility]) [facility] Drug/316818180(SNO Augmentin [facility]) [facility] Drug/610523504(SNO Ceclor [facility]) [facility] Repository Drug/120145689(SNO [facility]) [facility] Repository ENCOUNTERS ENCOUNTERS ADMIT/DISCHARGE ACCOUNT ADMITTING ENCOUNTER LOCATION SOURCE NUMBER CLASS 07/15/2018/07/17/19 [id number] Della Shah Inpatient [place] 19 Encounter [facility] ding:WPRoom: Repository [id number]: 1 07/14/2018/07/15/19 [id number] Ambulatory [place] 19 [facility] Main [place] Repository 07/07/2018/07/08/19 [id number] Ambulatory [place] 19 [facility] ding:WPOUTRo Repository om: [id number] 07/05/2018/07/06/19 [id number] Ambulatory [place] [facility] [place] Repository 06/30/2018/07/07/19 [id number] Ambulatory [place] 19 [facility] [place] Repository 06/28/2018/06/30/19 [id number] Ambulatory [place] 19 [facility] [place] Repository 06/23/2018/06/25/20 [id number] Ambulatory [place] 18 [facility] [place] Repository 06/07/2018/06/08/20 [id number] Ambulatory [place] 18 [facility] [place] Repository 06/07/2018/06/08/20 [id number] Ambulatory [place] 18 [facility] [place] Repository 05/25/2018/05/26/20 [id number] Ambulatory [place] 18 [facility] [place] Repository 05/04/2018/05/04/20 [id number] Ambulatory [place] 18 [facility] [place] Repository 05/04/2018/05/05/20 [id number] Ambulatory [place] 18 [facility] [place] Repository 04/05/2018/04/06/20 [id number] Ambulatory [place] 18 [facility] [place] Repository 03/02/2018/03/04/20 [id number] Ambulatory [place] 18 [facility] [place] Repository 03/02/2018/03/05/20 [id number] Ambulatory [place] 18 [facility] [place] Repository 02/05/2018/02/06/20 [id number] Ambulatory [place] 18 [facility] [place] Repository 02/02/2018/02/04/20 [id number] Ambulatory [place] 18 [facility] [place] Repository 01/25/2018/01/26/20 [id number] Emergency [place] 18 [facility] ding:ED Repository 01/08/2018/01/09/20 [id number] Ambulatory [address] Repository 01/08/2018/01/12/20 [id number] Ambulatory [address] Repository 01/08/2018/01/16/20 [id number] Ambulatory [address] Repository 12/11/2017 [id number] Ambulatory [facility] Repository 12/11/2017/12/16/19 [id number] Ambulatory [address] Repository 11/26/2017/12/03/19 [id number] Ambulatory [address] Repository 10/15/2017/10/16/19 [id number] [place], [address] ding:TeraFa Repository racRoom: Room 2 10/09/2017/10/10/19 [id number] Ambulatory BMSBuilding: [address] Repository 08/30/2017/08/31/19 [id number] Emergency [address] ding:ED Repository PAYERS PAYERS ENCOUNTER GUARANTOR PAYER SUBSCRIBER SOURCE 07/15/2018 MELIDA Bustillos Primary MELIDA PARRISH[address] Insurance:[facility] BICKERDOB: [place] [id number] [id number], Number: Repository [place] [address]Eza: [id number] Date:[id number] [id number] [address]BJ: 07/15/2018 Secondary MELIDA Connell Insurance:[facility] BICKERDOB: [facility] [id number] [facility] Number: Repository [id number] Date:6827-24-91U[address] [place] [address]BY: 07/15/2018 Tertiary NOT GIVENANKUR [place] Insurance:SELF PAY [facility] Number: Effective Repository Date:2018-07-14 07/07/2018 MELIDA Bustillos Primary MELIDA [address] Insurance:[facility] BICKERDOB: Community WATER CARE [id number] [id number] [facility], Number: Repository [place] [address]Fem: [id number] Date:2275-10-57SO [address] () [address]YDL, [place] [address]NX: 07/07/2018 Secondary MELIDA L Ko Insurance:[facility] BICKERDOB: [facility] [id number] Hospital Number: Repository [id number] Date:[id number] [address] [place] [address]AC: 07/07/2018 Tertiary NOT GIVENUNK [place] Insurance:SELF PAY [facility] Number: Effective Repository Date:2018-07-07 01/25/2018 MELIDA Bustillos Primary MELIDA L Ko [id number] Insurance:MEDICAIDPol BICKERDOB: [facility] WATER [facility] Number: [id number] Miami Heart Institute, [id number] [place]ository [place] [address]Fwt: Date:2018-01-25 () 01/25/2018 Secondary NOT GIVENUNK [place] Insurance:SELF PAY [facility] Number: Effective Repository Date:2018-01-25 10/15/2017 MELIDA L Primary MELIDA L Gnosticism BICKERDOB: Insurance:[facility] BICKERDOB: [facility] Number: [id number] [facility] WATER Effective S WATER Repository [facility], Date:2017-10-15 - [place] [id number] [place] [address]Wwa: Name:CD:[id number]: [address]BJKEVIN ZUNIGA (HP) [id number]: [phone] () 10/09/2017 MELIDA L Primary NOT GIVENUNK [place] [id number] S Insurance:SELF PAY [facility], Number: Effective Repository [place] [address]Iwl: Date:2017-10-09 () 08/30/2017 MELIDA Willis Insurance:AETElvis VALLEJOB: Community WATER Number: [id number] Miami Heart Institute, [id number] Repository [place] [address]Seg: Date:2845-10-82MG [address]DJKEVIN ZUNIGA () [address]WG: 08/30/2017 Secondary NOT GIVENANKUR Connell Insurance:SELF PAY [facility] Number: Effective Repository Date:2017-08-30
== END 2018-07-17 10:30 | disposition home or self-care (01) | DRG 806 ==
PROVIDERS: Obstetrics & Gynecology; Admitting Provider Obstetrics & Gynecology; Referring Provider Obstetrics & Gynecology; Visit Provider Obstetrics & Gynecology
DX: O75.89 Other specified complications of labor and delivery (principal); O98.82 Other maternal infectious and parasitic diseases complicating childbirth; Z37.0 Single live birth; O71.4 Obstetric high vaginal laceration alone; O99.334 Smoking (tobacco) complicating childbirth; B95.1 Streptococcus, group B, as the cause of diseases classified elsewhere; N94.89 Other specified conditions associated with female genital organs and menstrual cycle; Z3A.39 39 weeks gestation of pregnancy
CPT/HCPCS: 59025; 59050; 85027; 86850; 86900; 99218; J7120; A4216; G0378

== ENCOUNTER 2019-12-13 10:30 | Outpatient (CLI) | payer MEDICAID, SELFPAY ==
[2019-12-13 10:46] VITALS: BMI 36.8
[2019-12-13 10:49] VITALS: BP 130/83; PULSE 88; TEMP 36.6
[2019-12-13 11:05] VITALS: BP 124/71; PULSE 81
[2019-12-13 11:19] LABS: Hematocrit 35.1 % (37-47); Hemoglobin 11.2 g/dL (12.0-15.0); Mean Corp Hgb Conc 31.9 g/dL (32-36); Mean Corpuscular Hgb 28.7 pg (27.0-32.0); Mean Platelet Vol. 10.7 fl (6.2-12.0); Platelet Count 249 K/mm3 (150-450); RBC Distribution Width CV 14.4 % (11.6-14.6); RBC Distribution Width SD 46.7 fl (35.1-43.9); White Blood Count 8.9 K/mm3 (4.4-11.0)
[2019-12-13 11:20] VITALS: BP 123/73; PULSE 86
[2019-12-13 11:27] LABS: Prothrombin Time (Protime)PT. 12.6 SECONDS (11.7-14.9)
[2019-12-13 11:28] LABS: Partial Thromboplast Time 28.8 Seconds (24.1-36.2); Protein, Urine (Random) 28.9 mg/dL (<11.9); Protein:Creat Ratio 208 mg/g CRE (0-200)
[2019-12-13 11:35] VITALS: BP 122/70; PULSE 86
[2019-12-13 11:41] LABS: AST(SGOT) 12 U/L (15-37); Alanine Aminotransfer ALT/SGPT 15 U/L (13-56); Creatinine, Serum 0.63 mg/dL (0.55-1.02); EST Glomerular Filtration Rate 118 mL/min (>60); Est Glom Filt Rate - Afr Amer 142 mL/min (>60); Estimated Creatinine Clearance 122.23 ml/min; Uric Acid 2.9 mg/dL (2.6-6.0)
[2019-12-13 11:50] VITALS: BP 127/74; PULSE 108
[2019-12-13 12:05] VITALS: BP 117/66; PULSE 83
--- NOTE | 2019-12-14 06:13 | OB.TRI.NOTE ---
History of Present Illness Date of Service: 12/13/19 Was patient seen by the physician?: No Reason For Visit: RULE OUT PIH Final OPHELIA: 01/02/20 Final OPHELIA Source: US <20 weeks Gestational age: 37 Weeks and 1 Days Allergies amoxicillin [From Augmentin] Allergy (Verified 12/13/19 10:52) Rash cefaclor [From Ceclor] Allergy (Verified 12/13/19 10:52) Rash clavulanic acid [From Augmentin] Allergy (Verified 12/13/19 10:52) Rash clindamycin [From Cleocin] Allergy (Verified 12/13/19 10:52) Rash Penicillins Allergy (Verified 12/13/19 10:52) Rash sulfamethoxazole [From Septra] Allergy (Verified 12/13/19 10:52) Rash trimethoprim [From Septra] Allergy (Verified 12/13/19 10:52) Rash - Pertinent Past Medical History Medical History: Past Medical History (Last Updated 10/09/17 @ 12:03 by Marilee Bloom) Back pain Irregular periods Kidney stones Seasonal allergic rhinitis Laboratory Studies: Laboratory Tests 12/13/19 12/13/19 12/13/19 Range/Units 11:00 11:00 11:00 WBC (4.4-11.0) K/mm3 RBC (4.2-5.4) M/mm3 Hgb (12.0-15.0) g/dL Hct (37-47) % MCV (81-99) fL MCH (27.0-32.0) pg MCHC (32-36) g/dL RDW Std Deviation (35.1-43.9) fl RDW Coeff of Maria Esther (11.6-14.6) % Plt Count (150-450) K/mm3 MPV (6.2-12.0) fl PT 12.6 (11.7-14.9) SECONDS INR 1.0 APTT 28.8 (24.1-36.2) Seconds Creatinine 0.63 (0.55-1.02) mg/dL Estim Creat Clear Calc 122.23 ml/min Est GFR (MDRD) Af Amer 142 (>60) mL/min Est GFR (MDRD) Non-Af 118 (>60) mL/min Uric Acid 2.9 (2.6-6.0) mg/dL AST 12 L (15-37) U/L ALT 15 (13-56) U/L U Random Total Protein 28.9 H (<11.9) mg/dL Urine Creatinine 139.00 (NO RANGE EST.) mg/dL Protein/Creatinin Ratio 208 H (0-200) mg/g CRE 12/13/19 Range/Units 11:00 WBC 8.9 (4.4-11.0) K/mm3 RBC 3.90 L (4.2-5.4) M/mm3 Hgb 11.2 L (12.0-15.0) g/dL Hct 35.1 L (37-47) % MCV 90.0 (81-99) fL MCH 28.7 (27.0-32.0) pg MCHC 31.9 L (32-36) g/dL RDW Std Deviation 46.7 H (35.1-43.9) fl RDW Coeff of Maria Esther 14.4 (11.6-14.6) % Plt Count 249 (150-450) K/mm3 MPV 10.7 (6.2-12.0) fl PT (11.7-14.9) SECONDS INR APTT (24.1-36.2) Seconds Creatinine (0.55-1.02) mg/dL Estim Creat Clear Calc ml/min Est GFR (MDRD) Af Amer (>60) mL/min Est GFR (MDRD) Non-Af (>60) mL/min Uric Acid (2.6-6.0) mg/dL AST (15-37) U/L ALT (13-56) U/L U Random Total Protein (<11.9) mg/dL Urine Creatinine (NO RANGE EST.) mg/dL Protein/Creatinin Ratio (0-200) mg/g CRE Physical Exam Vitals: Vital Signs Temp Pulse BP 97.8 F 83 117/66 12/13/19 10:49 12/13/19 12:05 12/13/19 12:05 NST - FHR Rate Baby A Baseline: 135 Variability:: Moderate Accelerations:: 15 x 15 NST Reactive:: Yes Uterine Activity:: Irregular Impression/Plan Reactive NST for elevated BP in PreE labs normal
== END 2019-12-13 12:20 | disposition home or self-care (01) ==
LOC: WPOUT 10:32 → WP 10:33
PROVIDERS: Referring Provider Obstetrics & Gynecology; Visit Provider Obstetrics & Gynecology
DX: O26.893 Other specified pregnancy related conditions, third trimester (principal); R03.0 Elevated blood-pressure reading, without diagnosis of hypertension; Z3A.37 37 weeks gestation of pregnancy; Z87.442 Personal history of urinary calculi; Z88.0 Allergy status to penicillin; Z88.1 Allergy status to other antibiotic agents; Z88.2 Allergy status to sulfonamides
CPT/HCPCS: 36415; 59025; 59050; 82565; 82570; 84156; 84450; 84460; 84550; 85027; 85610; 85730; 99218; G0378

== ENCOUNTER 2019-12-16 10:10 | Outpatient (CLI) | payer MEDICAID, SELFPAY ==
[2019-12-16] VITALS (10 sets, daily range): BP systolic 117–135; BP diastolic 69–74; PULSE 75–92; BMI 36.8
[2019-12-16 10:54] LABS: Hematocrit 34.9 % (37-47); Hemoglobin 11.3 g/dL (12.0-15.0); Mean Corp Hgb Conc 32.4 g/dL (32-36); Mean Corpuscular Hgb 28.9 pg (27.0-32.0); Mean Corpuscular Volume 89.3 fL (81-99); Mean Platelet Vol. 10.8 fl (6.2-12.0); Platelet Count 260 K/mm3 (150-450); RBC Distribution Width CV 14.4 % (11.6-14.6); RBC Distribution Width SD 46.2 fl (35.1-43.9); Red Blood Count 3.91 M/mm3 (4.2-5.4); White Blood Count 8.5 K/mm3 (4.4-11.0)
[2019-12-16 11:04] LABS: Prothrombin Time (Protime)PT. 12.5 SECONDS (11.7-14.9)
[2019-12-16 11:07] LABS: AST(SGOT) 15 U/L (15-37); Alanine Aminotransfer ALT/SGPT 14 U/L (13-56); Creatinine, Serum 0.67 mg/dL (0.55-1.02); EST Glomerular Filtration Rate 109 mL/min (>60); Est Glom Filt Rate - Afr Amer 132 mL/min (>60); Estimated Creatinine Clearance 114.94 ml/min; Uric Acid 3.3 mg/dL (2.6-6.0)
[2019-12-16 11:12] LABS: Protein, Urine (Random) 42.4 mg/dL (<11.9); Protein:Creat Ratio 220 mg/g CRE (0-200)
--- NOTE | 2019-12-17 09:06 | OB.TRI.NOTE ---
- Problem List (1) R/O Pre E Status: Acute (2) Headache Status: Acute History of Present Illness Date of Service: 12/16/19 Reason For Visit: R/O PRE E Date of Service: 12/16/19 Final OPHELIA: 01/02/20 Final OPHELIA Source: US <20 weeks Gestational age: 37 Weeks and 5 Days History of Present Illness: Patient is a 28 year old at 37.5 weeks gestation sent over from office to r/o preeclampsia. Patient sent earlier in the week for preeclampsia labs and urine that was within normal range. She was in office today for follow up BP check. C/O headache in office, elevated BP and protein was present in urine. Allergies amoxicillin [From Augmentin] Allergy (Verified 12/13/19 10:52) Rash cefaclor [From Ceclor] Allergy (Verified 12/13/19 10:52) Rash clavulanic acid [From Augmentin] Allergy (Verified 12/13/19 10:52) Rash clindamycin [From Cleocin] Allergy (Verified 12/13/19 10:52) Rash Penicillins Allergy (Verified 12/13/19 10:52) Rash sulfamethoxazole [From Septra] Allergy (Verified 12/13/19 10:52) Rash trimethoprim [From Septra] Allergy (Verified 12/13/19 10:52) Rash - Pertinent Past Medical History Medical History: Past Medical History (Last Updated 10/09/17 @ 12:03 by Marilee Bloom) Back pain Irregular periods Kidney stones Seasonal allergic rhinitis Laboratory Studies: Laboratory Tests 12/16/19 12/16/19 12/16/19 Range/Units 10:40 10:40 10:40 WBC (4.4-11.0) K/mm3 RBC (4.2-5.4) M/mm3 Hgb (12.0-15.0) g/dL Hct (37-47) % MCV (81-99) fL MCH (27.0-32.0) pg MCHC (32-36) g/dL RDW Std Deviation (35.1-43.9) fl RDW Coeff of Maria Esther (11.6-14.6) % Plt Count (150-450) K/mm3 MPV (6.2-12.0) fl PT 12.5 (11.7-14.9) SECONDS INR 1.0 APTT 30.0 (24.1-36.2) Seconds Creatinine 0.67 (0.55-1.02) mg/dL Estim Creat Clear Calc 114.94 ml/min Est GFR (MDRD) Af Amer 132 (>60) mL/min Est GFR (MDRD) Non-Af 109 (>60) mL/min Uric Acid 3.3 (2.6-6.0) mg/dL AST 15 (15-37) U/L ALT 14 (13-56) U/L U Random Total Protein 42.4 H (<11.9) mg/dL Urine Creatinine 193.00 (NO RANGE EST.) mg/dL Protein/Creatinin Ratio 220 H (0-200) mg/g CRE 12/16/19 Range/Units 10:40 WBC 8.5 (4.4-11.0) K/mm3 RBC 3.91 L (4.2-5.4) M/mm3 Hgb 11.3 L (12.0-15.0) g/dL Hct 34.9 L (37-47) % MCV 89.3 (81-99) fL MCH 28.9 (27.0-32.0) pg MCHC 32.4 (32-36) g/dL RDW Std Deviation 46.2 H (35.1-43.9) fl RDW Coeff of Maria Esther 14.4 (11.6-14.6) % Plt Count 260 (150-450) K/mm3 MPV 10.8 (6.2-12.0) fl PT (11.7-14.9) SECONDS INR APTT (24.1-36.2) Seconds Creatinine (0.55-1.02) mg/dL Estim Creat Clear Calc ml/min Est GFR (MDRD) Af Amer (>60) mL/min Est GFR (MDRD) Non-Af (>60) mL/min Uric Acid (2.6-6.0) mg/dL AST (15-37) U/L ALT (13-56) U/L U Random Total Protein (<11.9) mg/dL Urine Creatinine (NO RANGE EST.) mg/dL Protein/Creatinin Ratio (0-200) mg/g CRE Review of Systems HEENT: Reports: Head Aches Musculoskeletal: Denies: Joint Pain, Joint Tenderness Neurological: Reports: Headaches Physical Exam Vitals: Vital Signs Pulse BP 75 125/74 H 12/16/19 12:47 12/16/19 12:47 NST - FHR Rate Baby A Baseline: 135 Variability:: Moderate Accelerations:: 15 x 15 Decelerations:: None NST Reactive:: Yes FHR Category:: Category I Uterine Activity:: Irritability noted Impression/Plan 37.5 weeks gestation high risk multigravida Proteinuria (P/C ratio today 220) Blood pressures within normal range F/U in office on Thursday Preeclampsia precautions verbally given and patient agrees with plan Dr. Quintanilla agrees with plan of care
== END 2019-12-16 13:20 | disposition home or self-care (01) ==
LOC: WPOUT 10:18 → WP 10:19
PROVIDERS: Referring Provider Advanced Practice Midwife; Visit Provider Advanced Practice Midwife
DX: O12.13 Gestational proteinuria, third trimester (principal); O26.893 Other specified pregnancy related conditions, third trimester; R03.0 Elevated blood-pressure reading, without diagnosis of hypertension; Z3A.37 37 weeks gestation of pregnancy; Z87.442 Personal history of urinary calculi; Z88.0 Allergy status to penicillin; Z88.1 Allergy status to other antibiotic agents; Z88.2 Allergy status to sulfonamides
CPT/HCPCS: 36415; 59025; 59050; 82565; 82570; 84156; 84450; 84460; 84550; 85027; 85610; 85730; 99218; G0378

== ENCOUNTER → 2019-12-20 12:08 | Outpatient (CLI) | payer MEDICAID, SELFPAY ==
[2019-12-16 10:41] VITALS: BMI 36.8
== END ==
PROVIDERS: Visit Provider Obstetrics & Gynecology
DX: Z11.59 Encounter for screening for other viral diseases (principal)
CPT/HCPCS: 87635; U0003

== ENCOUNTER 2019-12-23 11:55 | Inpatient (IN) | payer MEDICAID, SELFPAY ==
[2019-12-16 10:41] VITALS: BMI 36.8
[2019-12-23] VITALS (41 sets, daily range): BP systolic 115–142; BP diastolic 69–101; PULSE 66–202; TEMP 36.3–37.2; O2SAT 84–100; BMI 37.3
[2019-12-23] MEDS: Lactated Ringers 1,000 ML 50 ML IV (12:15)
[2019-12-23] MEDS: Oxytocin 30 units/NS 500 ml 30 UNITS/500 ML IV.SOLN IV (12:29)
[2019-12-23 12:37] LABS: Absolute Lymphocyte Count 1.47 X10^3/uL (0.83-4.51); Absolute Neutrophil Count 6.2 X10^3/uL (2.0-7.7); Basophil# 0.01 X10^3/uL; Basophil% 0.1 % (0-1); Eosinophil# 0.06 X10^3/uL; Eosinophils% 0.7 % (0-5); Hematocrit 32.8 % (37-47); Hemoglobin 10.5 g/dL (12.0-15.0); Lymphocyte # 1.47 X10^3/ul (4.0); Lymphocyte % 18.1 % (19-41); Mean Corpuscular Hgb 28.8 pg (27.0-32.0); Mean Corpuscular Volume 89.9 fL (81-99); Mean Platelet Vol. 10.8 fl (6.2-12.0); Monocyte# 0.38 X10^3/uL; Monocyte% 4.7 % (0-10); NRBC Flagged by Analyzer 0 % (0-5); Neutrophil # 6.19 X10^3/uL (2.7-7.7); Platelet Count 242 K/mm3 (150-450); RBC Distribution Width CV 14.6 % (11.6-14.6); RBC Distribution Width SD 47.1 fl (35.1-43.9); Red Blood Count 3.65 M/mm3 (4.2-5.4); White Blood Count 8.1 K/mm3 (4.4-11.0)
[2019-12-23 12:47] LABS: Prothrombin Time (Protime)PT. 12.6 SECONDS (11.7-14.9)
[2019-12-23 12:48] LABS: Partial Thromboplast Time 28.8 Seconds (24.1-36.2)
[2019-12-23 12:51] LABS: AST(SGOT) 12 U/L (15-37); Alanine Aminotransfer ALT/SGPT 14 U/L (13-56); Creatinine, Serum 0.72 mg/dL (0.55-1.02); EST Glomerular Filtration Rate 102 mL/min (>60); Est Glom Filt Rate - Afr Amer 123 mL/min (>60); Estimated Creatinine Clearance 106.96 ml/min; Uric Acid 3.4 mg/dL (2.6-6.0)
[2019-12-23 12:56] LABS: Protein, Urine (Random) 92.8 mg/dL (<11.9); Protein:Creat Ratio 623 mg/g CRE (0-200)
[2019-12-23] MEDS: Lactated Ringers 500 ML 999 ML IV ×2 (15:19→21:51)
[2019-12-23] MEDS: fentaNYL-bupivacaine (epidural) 100 ML BAG EPIDURAL ×2 (15:59→20:14)
[2019-12-23] MEDS: 0.9% Saline Lock 10 ML Syringe IV (19:36)
[2019-12-23] MEDS: Ondansetron 4 MG/2 ML Vial IV (19:36)
[2019-12-23] MEDS: Lactated Ringers 1,000 ML 200 ML IV (20:21)
[2019-12-23] MEDS: Oxytocin 30 units/NS 500 ml 30 UNITS/500 ML IV.SOLN 334 UNITS IV (23:33)
--- NOTE | 2019-12-23 23:50 | PCM.OPRPT ---
Vaginal Delivery Maternal Presentation: Medically Indicated Induction Method of Induction: Pitocin, Amniotomy Medical Reason for Induction: Preeclampsia, eclampsia Amniotic Membrane Rupture Type: Artificial Amniotic Fluid Description: Clear Final OPHELIA: 01/02/20 Final OPHELIA Source: US <20 weeks Gestational age: 38 Weeks and 4 Days Date of Procedure: 12/23/19 Pre-Operative Diagnosis: labor Post-Operative Diagnosis: same Surgery/ Procedure Performed: Spontaneous Vaginal Delivery Type of Anesthesia: Epidural Description of Procedure: A vigorous female infant was delivered EMERSON over a second-degree perineal laceration. The remainder the was delivered with maternal pushing and gentle traction only in less than 15 seconds. The Pitocin infusion was initiated for active management of the third stage. The cord was clamped and cut after 1 minute. The was attended to by the waiting nursing staff. The placenta was delivered spontaneously and intact. The cervix and vagina were intact. The second-degree perineal laceration was repaired with 3-0 Vicryl suture in a running standard fashion. Sponge and needle counts were correct. A vaginal sweep was completed by me. Presentation: EMERSON Placental Delivery Description: Spontaneous Placenta Disposition: [facility] Cord Vessel Description: 3 Vessels Cord Entanglement: None Drain: Naidu to straight drain Estimated Blood Loss: 300 Infant A gender: Female - Prudence (1 minute): 10 (5 minute): 10 Episiotomy Description: None Laceration: 2nd degree - perineal Medications given after delivery: IV Pitocin Complications: None
--- NOTE | 2019-12-23 23:52 | HP.PCM_ITS ---
History Date of Admission: 07/15/18 Final OPHELIA: 01/02/20 Final OPHELIA Source: US <20 weeks Gestational age: 38 Weeks and 4 Days History of this : This is a 29 year-old, 3 para 2 admitted at 38-4/7 weeks gestation for gestational hypertension. When her preeclampsia labs returned it was noted she had proteinuria. Denies any persistent severe headaches. She is had good movement. No vaginal bleeding or leaking of fluid. No epigastric pain or visual disturbances. was complicated to date by obesity in , tobacco use during , history of gestational hypertension with her previous pregnancies. Medical History: Medical History (Last Updated 10/09/17 @ 12:03 by Marilee Bloom) Back pain M54.9 Irregular periods N92.6 Kidney stones N20.0 Seasonal allergic rhinitis J30.2 Allergies cefaclor [From Ceclor] Allergy (Verified 12/13/19 10:52) Rash clavulanic acid [From Augmentin] Allergy (Verified 12/13/19 10:52) Rash clindamycin [From Cleocin] Allergy (Verified 12/13/19 10:52) Rash sulfamethoxazole [From Septra] Allergy (Verified 12/13/19 10:52) Rash trimethoprim [From Septra] Allergy (Verified 12/13/19 10:52) Rash Home Medications: Home Medications Pnv No.95/Ferrous Fum/Folic AC [ Multivitamin Tablet] 1 each PO DAILY 01/25/18 Smoking Status: Current some day smoker History Past Pregnancies: Past Pregnancies Delivery Date Name GA/ Weeks Outcome Route Wt Sex Labor Length Anesthesia Delivery Location Provider FOB Expected Delivery Method: Spontaneous Vaginal Review of Systems Constitutional: Denies: Chills, Fever Eyes: Denies: Blurred vision Cardiovascular: Denies: Chest Pain Respiratory: Denies: Cough Skin: Denies: Rash Neurological: Denies: Blurred vision, Change in Speech, Slurred speech Physical Exam Vitals: Vital Signs Temp Pulse BP Pulse Ox 99.0 F 80 133/101 H 96 12/23/19 22:22 12/23/19 23:43 12/23/19 23:43 12/23/19 22:33 General: Alert, Cooperative, No apparent distress Cardiovascular: Regular rate Lungs: Normal air movement Abdomen: Soft, Non Tender, Non-Distended, Gravid Extremities:: Deep tendon reflexes - 2+ Neurological: Cranial nerves II-XII grossly intact. 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 She has proteinuria on her laboratory examination, otherwise labs are unremarkable. This gives her the diagnosis of preeclampsia without severe features. heart tones are reassuring. Pitocin and artificial rupture membranes induction. May weight is less than 4500 g clinically, pelvis is clinically adequate to expect vaginal delivery.
[2019-12-24] VITALS (16 sets, daily range): BP systolic 98–137; BP diastolic 57–86; PULSE 70–101; RESP 15–18; TEMP 36.3–37.1; O2SAT 83–98
[2019-12-24] MEDS: 0.9% Saline Lock 10 ML Syringe IV (02:03)
[2019-12-24] MEDS: Ibuprofen 600 MG Tablet PO ×3 (02:11→21:07)
[2019-12-24] MEDS: Acetaminophen 500 MG Tablet 1000 MG PO ×2 (06:38→16:49)
--- NOTE | 2019-12-24 10:58 | PN.OBGYN_ITS ---
Subjective: pain well controlled, average lochia, Denies PATIÑO or visual changes or epigastric pain. Tired - Physical Exam Vitals/I&O's: Vital Signs Temp Pulse Resp BP Pulse Ox 97.9 F 75 15 102/62 98 12/24/19 07:40 12/24/19 07:53 12/24/19 07:40 12/24/19 07:53 12/24/19 04:53 Oxygen Delivery Method Room Air Weight: 104.78 kg Body Mass Index (BMI) 37.3 Intake and Output for Last 24 Hours 12/22/19 12/23/19 12/24/19 23:59 23:59 23:59 Intake Total 2762.78 / 2762.78 500 / 500 Output Total 450 / 450 800 / 800 Balance 2312.78 / 2312.78 -300 / -300 General: Alert, Cooperative, No apparent distress Extremities: Edema - 2+, - - 2+ DTRs, no clonus Laboratory Results 12/23/19 12:15: WBC 8.1, RBC 3.65 L, Hgb 10.5 L, Hct 32.8 L, MCV 89.9, MCH 28.8, MCHC 32.0, RDW Std Deviation 47.1 H, RDW Coeff of Maria Esther 14.6, Plt Count 242, MPV 10.8, Immature Gran % (Auto) 0.400, Neut % (Auto) 76.0 H, Lymph % (Auto) 18.1 L, [place] % (Auto) 4.7, Eos % (Auto) 0.7, Baso % (Auto) 0.1, Absolute Neuts (auto) 6.2, Absolute Lymphs (auto) 1.47, Nucleated RBC % 0 12/23/19 12:15: Blood Type A POSITIVE, Antibody Screen NEGATIVE 12/23/19 12:15: WBC Cancelled, Corrected WBC Cancelled, RBC Cancelled, Hgb Cancelled, Hct Cancelled, MCV Cancelled, MCH Cancelled, MCHC Cancelled, RDW Std Deviation Cancelled, RDW Coeff of Maria Esther Cancelled, Plt Count Cancelled, MPV Cancelled, Diff Path Review Cancelled 12/23/19 12:15: PT 12.6, INR 1.0, APTT 28.8 12/23/19 12:15: U Random Total Protein 92.8 H, Urine Creatinine 149.00, Protein/Creatinin Ratio 623 H 12/23/19 12:15: Creatinine 0.72, Estim Creat Clear Calc 106.96, Est GFR (MDRD) Af Amer 123, Est GFR (MDRD) Non-Af 102, Uric Acid 3.4, AST 12 L, ALT 14 Current Medications Acetaminophen (Tylenol) 1,000 mg PO Q8H PRN PRN PRN Reason: Pain Score 1-3/10 Last Admin: 12/24/19 06:38 Dose: 1,000 mg Documented by: Bisacodyl (Dulcolax) 10 mg RECTAL UD PRN PRN Reason: If no BM Dibucaine (Dibucaine) 1 applic TOPICAL TID PRN PRN; Protocol PRN Reason: Discomfort Hydrocortisone (Hytone) 1 applic TOPICAL TID PRN PRN; Protocol PRN Reason: Discomfort Ibuprofen (Motrin) 600 mg PO Q6H PRN PRN PRN Reason: Pain Score 1-310 Last Admin: 12/24/19 02:11 Dose: 600 mg Documented by: Methylergonovine Maleate (Methergine) 0.2 mg IM X1 PRN PRN Reason: Excess bleeding/uterine atony Ondansetron HCl (Zofran) 4 mg IV Q4H PRN PRN PRN Reason: Nausea Prochlorperazine Edisylate (Compazine Iv) 10 mg IV Q6H PRN PRN PRN Reason: NAUSEA/VOMITING Senna/Docusate Sodium (Senokot-S, Rosa Maria-Colace) 1 - 2 tablet PO DAILY PRN PRN PRN Reason: Constipation Simethicone (Mylicon) 80 mg PO PCHS PRN PRN Reason: Indigestion/Stomach pain Sodium Chloride () 5 - 15 ml IV UD PRN PRN Reason: SALINE FLUSH Last Admin: 12/24/19 02:03 Dose: 10 ml Documented by: Medical Necessity - Tobacco Use Smoking Status: Current some day smoker Assessment/Plan All Active Problems (Last Updated 10/09/17 @ 12:03 by Marilee Bloom) R/O Pre E (Acute) Headache (Acute) Physical exam, pre-employment (Acute) PPD#1 s/p doing well preeclampsia without severe features infant and doing well
--- NOTE | 2019-12-24 10:58 | PCM.HP.OB ---
History Date of Admission: 07/15/18 Final OPHELIA: 01/02/20 Final OPHELIA Source: US <20 weeks Gestational age: 38 Weeks and 5 Days History of this : This is a 29 year-old, G [], P [], at 38 weeks gestational age. Medical History: Medical History (Last Updated 10/09/17 @ 12:03 by Marilee Bloom) Back pain M54.9 Irregular periods N92.6 Kidney stones N20.0 Seasonal allergic rhinitis J30.2 Allergies cefaclor [From Ceclor] Allergy (Verified 12/13/19 10:52) Rash clavulanic acid [From Augmentin] Allergy (Verified 12/13/19 10:52) Rash clindamycin [From Cleocin] Allergy (Verified 12/13/19 10:52) Rash sulfamethoxazole [From Septra] Allergy (Verified 12/13/19 10:52) Rash trimethoprim [From Septra] Allergy (Verified 12/13/19 10:52) Rash Home Medications: Home Medications Pnv No.95/Ferrous Fum/Folic AC [ Multivitamin Tablet] 1 each PO DAILY 01/25/18 Smoking Status: Current some day smoker History Past Pregnancies: Past Pregnancies Delivery Date Name GA/ Weeks Outcome Route Wt Sex Labor Length Anesthesia Delivery Location Provider FOB Physical Exam Vitals: Vital Signs Temp Pulse Resp BP Pulse Ox 97.9 F 75 15 102/62 98 12/24/19 07:40 12/24/19 07:53 12/24/19 07:40 12/24/19 07:53 12/24/19 04:53 Assessment/Plan All Active Problems (Last Updated 10/09/17 @ 12:03 by Marilee Bloom) R/O Pre E (Acute) Headache (Acute) Physical exam, pre-employment (Acute)
[2019-12-25 02:09] VITALS: O2SAT 95
[2019-12-25 02:10] VITALS: BP 108/60; PULSE 67; PULSE 68; RESP 16; TEMP 37.2; O2SAT 97
[2019-12-25] MEDS: Acetaminophen 500 MG Tablet 1000 MG PO (02:11)
[2019-12-25] MEDS: Ibuprofen 600 MG Tablet PO (08:34)
[2019-12-25 08:37] VITALS: BP 133/74; PULSE 80
[2019-12-25 08:39] VITALS: BP 133/74; PULSE 80; RESP 18; TEMP 36.7
--- NOTE | 2019-12-25 10:04 | PCM.PN.OB ---
Subjective: pain well controlled, average lochia, no PATIÑO or visual changes - Physical Exam Vitals/I&O's: Vital Signs Temp Pulse Resp BP Pulse Ox 98.0 F 80 18 133/74 H 97 12/25/19 08:39 12/25/19 08:39 12/25/19 08:39 12/25/19 08:39 12/25/19 02:10 Oxygen Delivery Method Room Air Weight: 104.78 kg Body Mass Index (BMI) 37.3 Intake and Output for Last 24 Hours 12/23/19 12/24/19 12/25/19 23:59 23:59 23:59 Intake Total 2762.78 / 2762.78 500 / 500 Output Total 450 / 450 1200 / 1200 Balance 2312.78 / 2312.78 -700 / -700 General: Alert, Cooperative, No apparent distress Current Medications Acetaminophen (Tylenol) 1,000 mg PO Q8H PRN PRN PRN Reason: Pain Score 1-3/10 Last Admin: 12/25/19 02:11 Dose: 1,000 mg Documented by: Bisacodyl (Dulcolax) 10 mg RECTAL UD PRN PRN Reason: If no BM Dibucaine (Dibucaine) 1 applic TOPICAL TID PRN PRN; Protocol PRN Reason: Discomfort Hydrocortisone (Hytone) 1 applic TOPICAL TID PRN PRN; Protocol PRN Reason: Discomfort Ibuprofen (Motrin) 600 mg PO Q6H PRN PRN PRN Reason: Pain Score 1-3/10 Last Admin: 12/25/19 08:34 Dose: 600 mg Documented by: Methylergonovine Maleate (Methergine) 0.2 mg IM X1 PRN PRN Reason: Excess bleeding/uterine atony Ondansetron HCl (Zofran) 4 mg IV Q4H PRN PRN PRN Reason: Nausea Prochlorperazine Edisylate (Compazine Iv) 10 mg IV Q6H PRN PRN PRN Reason: NAUSEA/VOMITING Senna/Docusate Sodium (Senokot-S, Rosa Maria-Colace) 1 - 2 tablet PO DAILY PRN PRN PRN Reason: Constipation Simethicone (Mylicon) 80 mg PO PCHS PRN PRN Reason: Indigestion/Stomach pain Sodium Chloride () 5 - 15 ml IV UD PRN PRN Reason: SALINE FLUSH Last Admin: 12/24/19 02:03 Dose: 10 ml Documented by: Medical Necessity - Tobacco Use Smoking Status: Current some day smoker Assessment/Plan All Active Problems (Last Updated 10/09/17 @ 12:03 by Marilee Bloom) R/O Pre E (Acute) Headache (Acute) Physical exam, pre-employment (Acute) PPD#2 s/p preeclampsia without severe features, BP stable after delivery d/c home f/u in 1 week or prn
--- NOTE | 2019-12-25 10:07 | DCINST_ITS ---
Discharge Diet: No Restrictions Discharge Activity: Return to Normal Activity, May not drive while taking narcotic pain medications., May Shower May resume sexual activity in: 4-6 weeks Additional Activity Instructions:: Nothing in the vagina for 4-6 weeks. You may return to work/school in 6 weeks. Call your doctor if your incision/area has: Continuous Slow Oozing, Sudden Increased Bleeding, Increased Pain/ Swelling, Increased Redness, Foul Smelling Discharge Additional Instructions: If you experience any of the following, contact your healthcare provider. * Bleeding that soaks a pad every hour for 2 hours * Fever 100.4 or higher * Unrelieved incision or abdominal pain * Swelling, redness, discharge or bleeding from your incision or episiotomy site * Your incision begins to separate * Problems urinating (including inability to urinate or burning while urinating). * Visual changes * Severe headache * Flu-like symptoms * Pain or redness in one of both of your breasts * Pain, warmth, tenderness or swelling in your legs, especially the calf area * Frequent nausea and vomiting * Symptoms of depression or anxiety If you experience any of the following, call 911 or go to the nearest Emergency Room. * Chest pain * Problems breathing * Seizure activity * Partial or complete paralysis of a body part, slurred speech, weakness or drooping of the face, or a sudden inability to walk or hold your balance Allergies/Adverse Reactions: Allergies cefaclor [From Ceclor] Allergy (Verified 12/13/19 10:52) Rash clavulanic acid [From Augmentin] Allergy (Verified 12/13/19 10:52) Rash clindamycin [From Cleocin] Allergy (Verified 12/13/19 10:52) Rash sulfamethoxazole [From Septra] Allergy (Verified 12/13/19 10:52) Rash trimethoprim [From Septra] Allergy (Verified 12/13/19 10:52) Rash Medications to take at Discharge Pnv No.95/Ferrous Fum/Folic AC [ Multivitamin Tablet] 1 each PO DAILY 01/25/18 Ibuprofen [Motrin] 600 mg PO Q6H PRN #60 tab 12/25/19 The following prescriptions were given: Ibuprofen [Motrin] 600 mg PO Q6H PRN #60 tab PRN Reason: Pain Transmission Status: Pending to [id number] Please Follow Up With: Henrietta Montes MD - [phone] When: Call to make an appointment with your doctor in 6 weeks. If you had elevated Blood Pressure or 4th degree laceration you will need to be seen in 2 weeks. Primary Care Physician: Care Physician,No Primary [Primary Care Provider] - Test Results: Test results from this visit will be discussed in further detail at your follow- up appointment, if applicable.
== END 2019-12-25 10:30 | disposition home or self-care (01) | DRG 560 ==
LOC: WP 11:55
PROVIDERS: Admitting Provider Obstetrics & Gynecology; Visit Provider Obstetrics & Gynecology
DX: O14.04 Mild to moderate pre-eclampsia, complicating childbirth (principal); O13.4 Gestational [pregnancy-induced] hypertension without significant proteinuria, complicating childbirth; Z3A.38 38 weeks gestation of pregnancy; Z37.0 Single live birth; F17.200 Nicotine dependence, unspecified, uncomplicated; O99.214 Obesity complicating childbirth; O99.334 Smoking (tobacco) complicating childbirth; E66.9 Obesity, unspecified; O70.1 Second degree perineal laceration during delivery; Z87.442 Personal history of urinary calculi
CPT/HCPCS: 59025; 59050; 82565; 82570; 84156; 84450; 84460; 84550; 85025; 85610; 85730; 86850; 86900; 86901; 87635; 99218; J7120; A4216; G0378; J2405; U0003